=== PATIENT | male | born 1960 | race Caucasian/White ===

== ENCOUNTER 2017-01-17 10:34 | Emergency (ER) | payer BC ==
[~2017-01-17] VITALS: Ht 180.3 cm; Wt 108.0 kg
[~2017-01-17 10:34] MED LIST: ADDERALL30 MG PO; ADLT ASA LOW81 MG PO; AMOXICILLIN500 MG PO; AMPHETAMINE PO; ATENOLOL25 MG OR; ATENOLOL50 MG PO; ATORVASTATIN CA40 MG PO; AUGMENTIN500TAB PO; AUGMENTIN875TAB PO; BABY ASPIRIN81 MG OR; BACTRIM DS1 TAB PO; BACTROBAN2 % EX; CHANTIX CONTINUI1 MG OR; CHANTIX0.5 MG PO; CHANTIX1 MG OR; CHANTIX1 MG PO; CIALIS5 MG PO; CIPRODEX1 ML AD; CIPROFLOXACN500 MG PO; CLARITIN10 M1 PO; CORTISPORIN OTI10 ML AD; COUMADIN3 MG OR; DICLOXACILL500 MG PO; DILAUDID 2MG2 MG/TA1 PO; DILAUDID2 MG PO; DOXYCYC MONO100 M1 PO; DOXYCYCL HYC100 MG PO; FLEXERIL PO; FLEXERIL10 MG PO; FLONASE NASAL50 MCG; FUROSEMIDE20 MG PO; GARLIC OIL 15003 MG OR; HYDROCO/APAP1 TA9 PO; IRON325 M1; KEFLEX500 M1 PO; KENALOG-4040 MG/ML IA; LASIX20 MG PO; LIPITOR10 MG OR; LIPITOR20 MG PO; LIPITOR40 MG PO; LORTAB 5 OR; LORTAB 7.57.5 MG PO; LORTAB5 PO; LYRICA150 MG OR; LYRICA225 MG PO; LYRICA300 MG PO; LYRICA75 MG OR; LYRICA75 MG PO; MAGN SULFATE70 MG OR; MEDDOSEPAK PO; METFORMIN500 MG PO; METRONIDAZOL500 MG PO; MULTIVITAMI1 PO; NAPROSYN500 MG PO; NIACIN500 M2 PO; NIACIN500 MG OR; NIASPAN500 MG PO; NORCO1 TA2 PO; NORCO1 TAB PO; NUVIGIL150 MG PO; NUVIGIL250 MG OR; NUVIGIL250 MG PO; OMNICEF300 MG PO; PENICILLN VK500 MG OR; PERCOCET 5/325M1 TAB PO; PERCOCET1 TA2 OR; PLAVIX75 MG OR; PLAVIX75 MG PO; POTASSIMIN75 MG OR; POTASSIUM CITR540 MG PO; PREDNISONE10 MG PO; PROVIGIL200 MG PO; REQUIP XL2 MG PO; REQUIP0.5 MG OR; ROCEPHIN 1 GM1 GM IM; ROPINIROLE0.5 MG PO; SOLU-MEDROL125 MG IM; ULTRAM50 M1 PO; VIAGRA100 MG PO; WARFARIN1 MG PO; WARFARIN3 MG PO; XANAX0.5 MG OR; XANAX0.5 MG PO; ZESTRIL/PRI20 MG/TAB PO; ZESTRIL30 MG PO; ZITHROMAX250 MG PO; [UNRECOGNIZED DRUG - OTHER]
[2017-01-17 11:22] LABS: HEMATOCRIT 48.9 % (39.0-50.0); HEMOGLOBIN 16.4 g/dl (14.0-18.0); IMMATURE GRANULOCYTES 1.3 % (0.0-1.0); MEAN CELL VOLUME 93.9 fL CALC (80.0-100.0); MEAN CORPUSCULAR HGB 31.5 pG CALC (26.0-32.0); MEAN CORPUSCULAR HGB CONC 33.5 g/L CALC (32.0-36.0); NEUT# 4.96 thou/uL (1.82-7.42); RED BLOOD COUNT 5.21 mill/uL (4.70-6.10); RED CELL DISTRI WIDTH 15.7 % (11.5-15.5)
[2017-01-17 11:38] LABS: ALBUMIN 4.7 g/dL (3.2-5.0); ALKALINE PHOSPHATASE 108 u/l (38-126); AMYLASE 39 u/l (30-110); ANION GAP 16 (6-22 (CALC)); BILIRUBIN, TOTAL 1.3 mg/dL (0.0-1.4); BUN 12 mg/dL (9-20); BUN/CREATININE RATIO 14 (12-20 (CALC)); CALCIUM 9.5 mg/dL (8.4-10.2); CARBON DIOXIDE 23 mmol/l (22-30); CHLORIDE 106 mmol/l (95-108); CREATININE 0.9 mg/dL (0.7-1.3); GFR > 60 ML/MIN (>=60 (CALC)); GFR FOR AFR.AMER. > 60 ML/MIN (>=60 (CALC)); GLUCOSE 114 mg/dL (75-110); LIPASE 139 u/l (23-300); POTASSIUM 4.4 mmol/l (3.5-5.1); SGOT/AST 47 u/l (17-59); SGPT/ALT 83 u/l (21-72); SODIUM 140 mmol/l (137-146); TOTAL PROTEIN 7.5 g/dL (6.3-8.2)
[2017-01-17] MEDS ORDERED: LORTAB 10-325 M1 TAB PO (13:13)
[2017-01-17 13:30] VITALS: BP 169/106
== END 2017-01-17 13:32 | disposition home or self-care (01) | DRG 694 ==
LOC: ED 10:34
PROVIDERS: Emergency Medicine
DX: N20.1 Calculus of ureter (principal); E11.40 Type 2 diabetes mellitus with diabetic neuropathy, unspecified; E11.51 Type 2 diabetes mellitus with diabetic peripheral angiopathy without gangrene; I10 Essential (primary) hypertension; F41.9 Anxiety disorder, unspecified; G47.30 Sleep apnea, unspecified; F32.9 Major depressive disorder, single episode, unspecified; F17.210 Nicotine dependence, cigarettes, uncomplicated; Z95.828 Presence of other vascular implants and grafts
CPT/HCPCS: Q9967

== ENCOUNTER 2018-05-08 08:34 | Emergency (ER) | payer BC ==
[~2018-05-08] VITALS: Ht 180.3 cm; Wt 110.0 kg
[~2018-05-08 08:34] MED LIST changes: +LORTAB 10-325 M1 TAB PO
[2018-05-08 09:51] LABS: IMMATURE GRANULOCYTES 1.2 % (0.0-5.0); MEAN CELL VOLUME 96.9 fL CALC (80.0-100.0); MEAN CORPUSCULAR HGB 32.7 pG CALC (26.0-32.0); MEAN CORPUSCULAR HGB CONC 33.7 g/L CALC (32.0-36.0); NEUT# 7.19 thou/uL (1.82-7.42); RED BLOOD COUNT 4.25 mill/uL (4.70-6.10); RED CELL DISTRI WIDTH 15.7 % (11.5-15.5)
[2018-05-08 09:53] LABS: HEMATOCRIT 41.2 % (39.0-50.0); HEMOGLOBIN 13.9 g/dl (14.0-18.0)
[2018-05-08] MEDS ORDERED: LISINOPRIL20 MG PO (09:56)
[2018-05-08] MEDS ORDERED: LYRICA50 MG PO (09:58)
[2018-05-08] MEDS ORDERED: FUROSEMIDE20 MG PO (09:59)
[2018-05-08] MEDS ORDERED: WELLBUTRIN SR150 MG PO (10:00)
[2018-05-08] MEDS ORDERED: PLAVIX75 MG PO (10:00)
[2018-05-08 10:09] LABS: ANION GAP 16 (6-22 (CALC)); BUN 14 mg/dL (9-20); BUN/CREATININE RATIO 15 (12-20 (CALC)); CARBON DIOXIDE 24 mmol/l (22-30); CHLORIDE 105 mmol/l (95-108); CREATININE 0.9 mg/dL (0.7-1.3); GFR > 60 ML/MIN (>=60 (CALC)); GFR FOR AFR.AMER. > 60 ML/MIN (>=60 (CALC)); SODIUM 141 mmol/l (137-146)
[2018-05-08] MEDS ORDERED: CEPHALEXIN500 M1 PO (11:38)
[2018-05-08] MEDS ORDERED: MOTRIN400 MG PO (11:38)
[2018-05-08] MEDS ORDERED: BACTRIM DS1 TAB PO (11:38)
[2018-05-08] MEDS ORDERED: HYDROCO/APAP1 TA9 PO (11:49)
[2018-05-08 11:53] VITALS: BP 148/81
== END 2018-05-08 11:53 | disposition home or self-care (01) | DRG 603 ==
LOC: ED 08:34
PROVIDERS: Family Medicine
DX: L03.114 Cellulitis of left upper limb (principal); E11.9 Type 2 diabetes mellitus without complications; I10 Essential (primary) hypertension; E78.5 Hyperlipidemia, unspecified; F17.210 Nicotine dependence, cigarettes, uncomplicated; G47.30 Sleep apnea, unspecified; G47.419 Narcolepsy without cataplexy; Z95.828 Presence of other vascular implants and grafts
CPT/HCPCS: Q9967

== ENCOUNTER 2018-09-23 10:41 | Emergency (ER) | payer BC ==
[~2018-09-23] VITALS: Ht 180.3 cm; Wt 109.1 kg
[~2018-09-23 10:41] MED LIST changes: +ASPERCREME LIDOCA41 TP; +CEPHALEXIN500 M1 PO; +CYCLOBENZAPR5 MG PO; +LISINOPRIL20 MG PO; +LYRICA50 MG PO; +MOTRIN400 MG PO; +VOLTAREN1%GEL TOP; +WELLBUTRIN SR150 MG PO
[2018-09-23] MEDS ORDERED: HYDROCO/APAP1 TA9 PO (11:48)
[2018-09-23] MEDS ORDERED: BACTRIM DS1 TAB PO (11:48)
[2018-09-23] MEDS ORDERED: CEPHALEXIN500 M1 PO (11:48)
[2018-09-23 11:53] VITALS: BP 133/75
[2018-09-24] MEDS ORDERED: PLAVIX75 MG PO (10:43)
[2018-09-24] MEDS ORDERED: LOPID600 MG PO (10:48)
[2018-09-24] MEDS ORDERED: METFORMIN850 MG PO (10:48)
[2018-09-24] MEDS ORDERED: LYRICA100 MG PO (10:49)
[2018-09-24] MEDS ORDERED: LISINOPRIL20 MG PO (10:49)
[2018-09-24] MEDS ORDERED: SINGULAIR10 MG PO (11:32)
[2018-09-24] MEDS ORDERED: LIPITOR20 M1 PO (11:33)
[2018-09-24] MEDS ORDERED: BUPROPION HCL300 MG PO (11:34)
[2018-09-24] MEDS ORDERED: ASPIRIN81 MG PO (11:35)
[2018-09-24] MEDS ORDERED: NIACIN SR500 M1 PO (11:35)
[2018-09-24] MEDS ORDERED: NAPROXEN250 MG PO (11:36)
[2018-09-24] MEDS ORDERED: ADDERALL30 MG PO (11:37)
== END 2018-09-23 12:09 | disposition left against medical advice (07) | DRG 603 ==
LOC: ED 10:41
DX: L03.115 Cellulitis of right lower limb (principal); E11.621 Type 2 diabetes mellitus with foot ulcer; L97.519 Non-pressure chronic ulcer of other part of right foot with unspecified severity; I10 Essential (primary) hypertension; E78.5 Hyperlipidemia, unspecified; G47.419 Narcolepsy without cataplexy; T50.2X6A Underdosing of carbonic-anhydrase inhibitors, benzothiadiazides and other diuretics, initial encounter; F17.210 Nicotine dependence, cigarettes, uncomplicated; Z89.429 Acquired absence of other toe(s), unspecified side; Z95.828 Presence of other vascular implants and grafts; Z91.128 Patient's intentional underdosing of medication regimen for other reason; Z91.19 Patient's noncompliance with other medical treatment and regimen

== ENCOUNTER 2018-09-23 16:16 | Inpatient (IN) | payer BC ==
[~2018-09-23] VITALS: Ht 180.3 cm; Wt 100.0 kg
--- NOTE | 2018-09-23 16:41 | NUR ---
CHARGE NURSE INFORMED OF BP, INSTRUCTED TO PLACE PATIENT BACK TO WAITING ROOM. VS RECHECKED BP 108/51 HR 96. PATIENT INFORMED OF BUSY ED AND WAIT TIME. PATIENT BACK TO WAITING ROOM VIA WHEELCHAIR. ALERT AND ORIENTED X4.
--- NOTE | 2018-09-23 17:27 | NUR ---
PT TO ROOM # 15 VIA W/C
[2018-09-23 18:11] LABS: IMMATURE GRANULOCYTES 1.1 % (0.0-5.0); MEAN CORPUSCULAR HGB 30.1 pG CALC (26.0-32.0); MEAN CORPUSCULAR HGB CONC 33.4 g/L CALC (32.0-36.0); NEUT# 17.07 thou/uL (1.82-7.42); RED BLOOD COUNT 5.62 mill/uL (4.70-6.10); RED CELL DISTRI WIDTH 14.8 % (11.5-15.5)
--- NOTE | 2018-09-23 18:15 | NUR ---
PT NOW WITH IV ESTABLISHED, BLOOD DRAWN, CULTURES DRAWN, PROVIDED IVF AND ABX. PT AWARE OF POSSIBLE ADMISSION, AGREEABLE NOW. PT AMA'ed THIS AM.
[2018-09-23 18:43] LABS: HEMATOCRIT 50.6 % (39.0-50.0); HEMOGLOBIN 16.9 g/dl (14.0-18.0)
[2018-09-23 18:44] LABS: CREATININE 1.6 mg/dL (0.7-1.3); POTASSIUM 3.6 mmol/l (3.5-5.1)
[2018-09-23 19:43] VITALS: BP 141/79
--- NOTE | 2018-09-23 19:55 | NUR ---
PT TAKEN TO ROOM 268, REPORT TO KRYSTYNA.
--- NOTE | 2018-09-23 20:00 | NUR ---
pt arrived on floor via stretcher . pt a/o x3. able to voice needs. denies pain at current time. pt has 20g left forearm iv. patent and in good health. lung sounds clear, abdomen distented. pulses present. Right foot red and swollen. fourth toe amputation noted. pt stated d/t bone infection. pt has an open wound on bottom of right foot black in color. wound culture collected. foot warm to touch. pt states Bm was approx. 2 days ago. pt has unsteady gait d/t wound and swollen of foot. pt placedon fall precaution and seizure precation. bed rails wrapped with blankets. pt placed on droplet precaution for previous history of mrsa. poc discussed with pt. pt voiced understanding. son took medications home.pt has cpap from home set up in the room.pt declines flu vaccination. will continue to monitor. monitor.
[2018-09-24 00:29] VITALS: BP 131/74
[2018-09-24 03:50] VITALS: BP 140/79
[2018-09-24 05:07] LABS: HEMATOCRIT 49.7 % (39.0-50.0); HEMOGLOBIN 16.3 g/dl (14.0-18.0); MEAN CELL VOLUME 91.5 fL CALC (80.0-100.0); MEAN CORPUSCULAR HGB CONC 32.8 g/L CALC (32.0-36.0); RED BLOOD COUNT 5.43 mill/uL (4.70-6.10); RED CELL DISTRI WIDTH 14.8 % (11.5-15.5)
[2018-09-24 05:53] LABS: ANION GAP 12 (6-22 (CALC)); BUN 17 mg/dL (9-20); BUN/CREATININE RATIO 15 (12-20 (CALC)); CARBON DIOXIDE 26 mmol/l (22-30); CHLORIDE 104 mmol/l (95-108); CHOLESTEROL HDL RATIO 3.1 (<4.4 (CALC)); CREATININE 1.2 mg/dL (0.7-1.3); GFR > 60 ML/MIN (>=60 (CALC)); GFR FOR AFR.AMER. > 60 ML/MIN (>=60 (CALC)); HDL CHOLESTEROL 36 mg/dL (>=40); POTASSIUM 3.7 mmol/l (3.5-5.1); SODIUM 139 mmol/l (137-146); TOTAL TRIGLYCERIDES 108 mg/dl (30-149); VLDL CHOLESTROL 22 mg/dl (4-45 (CALC))
[2018-09-24 05:58] LABS: CALCULATED LDLCHOLESTEROL 52 mg/dL (62-129 (CALC))
[2018-09-24 05:59] LABS: TOTAL CHOLESTEROL 110 mg/dl (0-199)
--- NOTE | 2018-09-24 08:12 | NUR ---
SHIFT REPORT, PT AWAKE ALERT AND ORIENTED RESTING IN BED, NO C/O DISCOMFORT AT THIS TIME, ALL NEEDS ADDRESSED, CALL COCHRAN IN REACH.
[2018-09-24 09:08] VITALS: BP 120/70
[2018-09-24] MEDS ORDERED: PLAVIX75 MG PO (10:43)
[2018-09-24] MEDS ORDERED: METFORMIN850 MG PO (10:48)
[2018-09-24] MEDS ORDERED: LOPID600 MG PO (10:48)
[2018-09-24] MEDS ORDERED: LYRICA100 MG PO (10:49)
[2018-09-24] MEDS ORDERED: LISINOPRIL20 MG PO (10:49)
[2018-09-24] MEDS ORDERED: SINGULAIR10 MG PO (11:32)
[2018-09-24] MEDS ORDERED: LIPITOR20 M1 PO (11:33)
[2018-09-24] MEDS ORDERED: BUPROPION HCL300 MG PO (11:34)
[2018-09-24] MEDS ORDERED: ASPIRIN81 MG PO (11:35)
[2018-09-24] MEDS ORDERED: NIACIN SR500 M1 PO (11:35)
[2018-09-24] MEDS ORDERED: NAPROXEN250 MG PO (11:36)
[2018-09-24] MEDS ORDERED: ADDERALL30 MG PO (11:37)
--- NOTE | 2018-09-24 12:29 | NUR ---
RESTING IN BED AT THIS TIME, ATE MEAL, DR OREILLY ROUNDED AND WROTE ORDERS, PHARMACY CONTACTED TO UPDATE MED[facility]. PT REPORTED HAS NOT TAKEN ANY HOME MEDICATIONS SINCE LAST TUESDAY AND THAT HE DISCARDED ALL HIS MEDICATIONS THEY WERE TOO MANY.
--- NOTE | 2018-09-24 13:14 | NUR ---
S: LILO BURRIS is a 58 M who presents with SKIN INFECTION. He has a history of. All medications in patient's chart were reviewed. O: VS: BP 120/70, P92, RR20,T99.9 W 95kg, HT 71IN, Scr=1.2,CrCl= 77ml/min A: Blood culture is pending which is sensitive to <>. Urine culture is pending which is sensitive to <>. P: Patient is on ZOSYN. Vancomycin ordered for pharmacy to dose. Start Vancomycin 1250MG IV Q12H. Vancomycin trough is drawn before the 4th dose on 09/26/18 0030 . Vancomycin goal trough is between <15-20 mcg/ml>. RULE OUT OSTEO Pharmacy will follow and or advise on antibiotics use as needed. GRAYSON GARRISON-PHARMD
--- NOTE | 2018-09-24 15:00 | NUR ---
DR OKSANA VYAS, EVALUATED RIGHT ROOT, MRI ORDERED. PT STATED HE WAS NOT AWARE OF ULCER ON TOE AND HE JUST NOTICED REDNESS TO LEG 2 DAYS AGO.
[2018-09-24 15:51] VITALS: BP 159/97
[2018-09-24 19:14] VITALS: BP 149/70
[2018-09-25] VITALS (10 sets, daily range): BP systolic 107–154; BP diastolic 60–85
--- NOTE | 2018-09-25 00:23 | NUR ---
MADHAVI OREILLY NOTIFIED OF HYPOTENSION. ORDERS RECIEVED TO GIVE PT ONE LITER OF FLUID.
[2018-09-25 05:14] LABS: HEMATOCRIT 47.9 % (39.0-50.0); HEMOGLOBIN 15.7 g/dl (14.0-18.0); MEAN CELL VOLUME 90.5 fL CALC (80.0-100.0); MEAN CORPUSCULAR HGB 29.7 pG CALC (26.0-32.0); MEAN CORPUSCULAR HGB CONC 32.8 g/L CALC (32.0-36.0); RED BLOOD COUNT 5.29 mill/uL (4.70-6.10); RED CELL DISTRI WIDTH 14.5 % (11.5-15.5)
--- NOTE | 2018-09-25 05:16 | NUR ---
PT BP AND TEMP HAS IMPROVED. LITER OF FLUID EFFECTIVE. WILL CONTINUE TO MONITOR.
[2018-09-25 05:40] LABS: ANION GAP 12 (6-22 (CALC)); BUN 14 mg/dL (9-20); BUN/CREATININE RATIO 14 (12-20 (CALC)); CARBON DIOXIDE 23 mmol/l (22-30); CHLORIDE 107 mmol/l (95-108); GFR > 60 ML/MIN (>=60 (CALC)); GFR FOR AFR.AMER. > 60 ML/MIN (>=60 (CALC)); POTASSIUM 4.2 mmol/l (3.5-5.1); SODIUM 138 mmol/l (137-146)
--- NOTE | 2018-09-25 07:00 | NUR ---
RECEIVED REPORT FROM NURSE Rhonda LUNA, PATIENT RESTING IN BED, EYES CLOSED NO DISCOMFORTS NOTED AT THIS TIME. WITH iV OF NACL 1 L X 100CC/HR, INFUSING WELL ON LEFT FOREARM
--- NOTE | 2018-09-25 12:00 | NUR ---
SEEN BY DENILSON TUCKER AROUND 10;05, ORDERS TO REPEAT HGB/HCT, PATIENT SITTING CURRENTLY SITTING ON BED, HAVING LUNCH.
--- NOTE | 2018-09-25 12:30 | NUR ---
PATIENT COMPLAINED OF PAIN IV SITE, SITE CHECKED BY TWO NURSES, IV SITE SOME REDNESS, WAS INFILTRATED. REMOVED IV LINE AT THIS TIME. TWO NURSES TRIED TO PUT IV LINE UNSUCCESSFUL. DR. OREILLY AT BEDSIDE AND DISCUSSED THE FINDINGS ON MRI OF THE RT FOOT, AND DISCUSSED THE PLAN OF CARE.
--- NOTE | 2018-09-25 12:48 | NUR ---
CALLED STATED THAT HE WILL CALL OR TO SETUP A TIME FOR PT TO GO TO SURGERY.
--- NOTE | 2018-09-25 14:00 | NUR ---
NURSE ORQUIDEA AND SUE TRIED TO INSERT IV LINE, UNSUCCESSFUL. CELIA FROM OR MADE AWARE THAT PREVIOUS ATTEMPTS UNSUCCESSFULL AND SAID THAT WILL PUT LINE ONCE HE'S DONE WITH HIS CASE.
--- NOTE | 2018-09-25 16:35 | NUR ---
CALLED CELIA FROM OR AND REMINDED HIM OF IV THAT STILL NEEDS TO BE INSERTED, STILL BUSY WITH CASE AT THIS TIME. PATIENT CURRENTLY RESTING IN BED, NO DISCOMFORTS NOTED AT THIS TIME, REINFORCED ON NPO.CALL LIGHT WITHIN REACH
--- NOTE | 2018-09-25 17:34 | NUR ---
1725 REPORT GIVEN TO NURSE NICOLE FROM OR, MADE AWARE THAT PATIENT HAS NO IV LINE YET, PAPER WORKS AND CHART GIVEN WELL. MADE AWARE ALSO THAT IV ZOSYN WAS NOT GIVEN AT 1200 AND SO IS IV VANCOMYCIN.ZOSYN AND VANCOMYCIN IV BAGS GIVEN TO NURSE COREY AND SAID WILL GIVE IT AT OR. PATIENT TAKEN TO OR VIA BED.
--- NOTE | 2018-09-25 19:30 | NUR ---
REPORT RECIEVED FROM [facility]. PT IN OPERATING ROOM. POC DISCUSSED. WAITING FOR PTS ARRIVAL.
--- NOTE | 2018-09-25 20:28 | NUR ---
PT ARRIVED FROM OPERATING ROOM VIA [facility].
[2018-09-26 00:12] VITALS: BP 119/64
--- NOTE | 2018-09-26 04:00 | NUR ---
equipment operator/laborer in room to draw blood. pt a/o. denies pain. no distress noted. pain managed with loratab. pt educated on importance of using o2. drg to foot clean dry and intact. will continue to monitor.
[2018-09-26 04:18] VITALS: BP 128/73
[2018-09-26 05:10] LABS: HEMATOCRIT 43.1 % (39.0-50.0); HEMOGLOBIN 14.1 g/dl (14.0-18.0); MEAN CELL VOLUME 91.9 fL CALC (80.0-100.0); MEAN CORPUSCULAR HGB 30.1 pG CALC (26.0-32.0); MEAN CORPUSCULAR HGB CONC 32.7 g/L CALC (32.0-36.0); RED BLOOD COUNT 4.69 mill/uL (4.70-6.10); RED CELL DISTRI WIDTH 14.6 % (11.5-15.5)
[2018-09-26 05:35] LABS: ANION GAP 10 (6-22 (CALC)); BUN 13 mg/dL (9-20); BUN/CREATININE RATIO 13 (12-20 (CALC)); CARBON DIOXIDE 21 mmol/l (22-30); CHLORIDE 110 mmol/l (95-108); CREATININE 0.9 mg/dL (0.7-1.3); GFR > 60 ML/MIN (>=60 (CALC)); GFR FOR AFR.AMER. > 60 ML/MIN (>=60 (CALC)); POTASSIUM 4.1 mmol/l (3.5-5.1); SODIUM 137 mmol/l (137-146)
--- NOTE | 2018-09-26 07:00 | NUR ---
RECEIVED REPORT FROM NURSE Rhonda LUNA, PATIENT WAS RESTING IN BED, EYES CLOSED NO DISCOMFORT NOTED AT THIS TIME, WITH EVEN UNLABORED BREATHING, WITH IV MIDLINE ON SADAF INFUSING WELL AT 100CC/HR.CALL LIGHT AT REACH
[2018-09-26 07:15] VITALS: BP 137/80
--- NOTE | 2018-09-26 12:00 | NUR ---
AROUND 11AM PATIENT WAS SEEN ON ROUNDS BY DR. OREILLY, ORDERS TO INCREASED DOSAGE OF PAIN MEDICATION, PATIENT WAS CURRENTLY SITTING ON WHEELCHAIR AND REINFORCED OF NWB ON OPERATIVE FOOT. CALL LIGHT AT REACH
--- NOTE | 2018-09-26 13:20 | NUR ---
S: LILO BURRIS is a 58 M who presents with soft tissue infection, osteomyelitis has been confirmed. O: VS: BP 128/73, P 69, RR 20,T 96.7F W 95.5 kg, HT 71 IN, Scr= 0.9, CrCl ~92 ml/min A: Blood culture is pending Wound culture from 09/24 shows Strep agalcatiae (B) Wound culture from 09/25 pending P: Patient is on ZOSYN. Vancomycin ordered for pharmacy to dose. Increase dose to Vancomycin 1500MG IV Q12H @ 0200,1400. Next vanco trough will be drawn on 09/28/18 @ 0130, 30 minutes prior to 0200 dose. Vancomycin goal trough is between 15-20 mcg/ml. Pharmacy will follow and or advise on antibiotics use as needed. Thank you for the consult, Varsha Aguilera, AlmaD
[2018-09-26 15:55] VITALS: BP 165/82
--- NOTE | 2018-09-26 16:00 | NUR ---
AT AROUND 1559 PATIENT C/O PAIN ON OPERATIVE FOOT, DUE HYDROCODONE/ACETAMINOPHEN GIVEN, TEMP WAS 101.3F. WASH CLOTH OFFERED.
--- NOTE | 2018-09-26 18:55 | NUR ---
PATIENTS TEMP RECHECKED AT 1716 WAS 102.5 F, DUE PRN TYLENOL GIVEN, RECHECKED AGAIN AT 1800, WENT DOWN TO 101.3.WILL CONTINUE TO MONITOR
--- NOTE | 2018-09-26 19:00 | NUR ---
RECIEVED REPORT FROM DAY NURSE. PT WHEELING HIMSELF AROUND THE HALLS IN WITH IV POLE. NO NEEDS AT THIS TIME. CALL COCHRAN IN REACH. WILL CONTINUE TO MONITOR. RED BLOOD NOTED TO BOTTOM OF SHABBIR BANDAGE ON RIGHT FOOT REINFORCED WITH ABD AND MORE SHABBIR. PT FLOPS FOOT AROUND ON BED AND ON THE FLOOR. REINFORCED PERCATIONS ON NON WEIGHT BEARING AND ELEVATING FOOT. ASSESMENT COMPLETED AT THIS TIME(SEE INTERVENTIONS) LUNG SOUNDS DIMINISHED THROUGHOUT, BS ACTIVE, HEART RATE NORMAL, TRACE EDEMA NOTED TO RIGHT LEG.
--- NOTE | 2018-09-26 20:42 | NUR ---
PT LAYING IN BED WATCHING TV AT THIS TIME. NO S/S OF DISTRESS NOTED.RED BLOOD NOTED TO BOTTOM OF SHABBIR BANDAGE ON RIGHT FOOT REINFORCED WITH ABD AND MORE SHABBIR. PT FLOPS FOOT AROUND ON BED AND ON THE FLOOR. REINFORCED PERCATIONS ON NON WEIGHT BEARING AND ELEVATING FOOT. ASSESMENT COMPLETED AT THIS TIME(SEE INTERVENTIONS) LUNG SOUNDS DIMINISHED THROUGHOUT, BS ACTIVE, HEART RATE NORMAL, TRACE EDEMA NOTED TO RIGHT LEG. NO OTHER NEEDS AT THIS TIME. CALL COCHRAN IN REACH. WILL CONTINUE TO MONITOR.
[2018-09-27] VITALS (7 sets, daily range): BP systolic 114–166; BP diastolic 62–79
--- NOTE | 2018-09-27 | NUR ---
PT RESTING QUIETLY IN BED. NO S/S OF DISTRESS NOTED. CALL COCHRAN IN REACH. WILL CONTINUE TO MONITOR.
--- NOTE | 2018-09-27 04:00 | NUR ---
PT RESTING QUIETLY IN BED. NO S/S OF DISTRESS NOTED. CALL COCHRAN IN REACH. WILL CONTINUE TO MONITOR.
[2018-09-27 05:21] LABS: HEMATOCRIT 42.5 % (39.0-50.0); HEMOGLOBIN 13.7 g/dl (14.0-18.0); MEAN CELL VOLUME 91.2 fL CALC (80.0-100.0); MEAN CORPUSCULAR HGB 29.4 pG CALC (26.0-32.0); MEAN CORPUSCULAR HGB CONC 32.2 g/L CALC (32.0-36.0); RED BLOOD COUNT 4.66 mill/uL (4.70-6.10); RED CELL DISTRI WIDTH 14.6 % (11.5-15.5)
[2018-09-27 05:31] LABS: ANION GAP 11 (6-22 (CALC)); BUN 11 mg/dL (9-20); BUN/CREATININE RATIO 11 (12-20 (CALC)); CARBON DIOXIDE 23 mmol/l (22-30); CHLORIDE 106 mmol/l (95-108); CREATININE 0.9 mg/dL (0.7-1.3); GFR > 60 ML/MIN (>=60 (CALC)); GFR FOR AFR.AMER. > 60 ML/MIN (>=60 (CALC)); POTASSIUM 3.8 mmol/l (3.5-5.1); SODIUM 136 mmol/l (137-146)
--- NOTE | 2018-09-27 05:50 | NUR ---
MID LINE FOUND PARTIALLY DISLODGED. MIDLINE PULLED AND NEW IV RESTARTED. PT TOLERATED WELL. CALL COCHRAN IN REACH. WILL CONTINUE TO MONITOR.
--- NOTE | 2018-09-27 07:00 | NUR ---
RECEIVED REPORT FROM NURSE PEARSON, PATIENT WAS CURRENTLY IN BED, SLEEPING, EVEN UNLABORED BREATHING, WITH ONGOING IVF OF NORMAL SALINE @100CC/HR ON RT WRIST,CALL LIGHT AT REACH
--- NOTE | 2018-09-27 11:46 | NUR ---
DR GANDHI CONTACTED ABOUT DRESSING CHANGE TO RIGHT SURGICAL FOOT, ADVISED TO LEAVE ALONE HE WILL BE HERE LATED TO CHANGE DRESSING, IF DRAINING THROUGH SHABBIR BANDAGE, APPLY ABD AND SECURE WITH ANOTHER SHABBIR WRAP.
--- NOTE | 2018-09-27 12:15 | NUR ---
SEEN ON ROUNDS BY DR. HERRING, REVIEW THE PLAN OF CARE WITH THE PATIENT, ORDERED TO CONTINUE WITH PRESENT TREATMENT, PATIENT ALERT AND ORIENTED BUT NON COMPLIANT WITH DIET, EDUCATED WITH APPROPRIATE DIABETIC DIET. CURRENTLY RESTING IN BED, CALL LIGHT AT REACH.
--- NOTE | 2018-09-27 13:17 | NUR ---
DR HERRING ROUNDED, ORDERED TO DC IVF, SURGEON TO FOLLOW WITH WOUND CARE.
--- NOTE | 2018-09-27 17:30 | NUR ---
SEEN ON ROUNDS BY DR. GANDHI, DRESSINGS CHANGED DONE BY SURGEON. NO NEW ORDERS MADE AT THIS TIME. CALL LIGHT WITHIN REACH.
--- NOTE | 2018-09-27 19:10 | NUR ---
BEDSIDE REPORT RECEIVED FROM SOPHIE TELLEZ. PT RESTING IN BED SEMI FOWLERS; ALERT AND ORIENTED. C/O MILD PAIN TO RIGHT FOOT; ELEVATED ON PILLOWS AND DRESSING CDI. RESPIRATIONS EVEN AND UNLABORED ON ROOM AIR. PLAN OF CARE REVIEWED. PT ENCOURAGED TO VERBALIZE CONCERNS. STATES UNDERSTANDING. SAFETY MEASURES IN PLACE. CALL LIGHT WITHIN REACH.
--- NOTE | 2018-09-27 22:41 | NUR ---
MOTRIN GIVEN WITH GOOD EFFECT FOR FEVER; TEMPERATURE 96.9 AT THIS TIME. LORTAB AND SONATA GIVEN PER PT REQUEST AT HS. ENCOURAGED RLE ELEVATION AND EDUCATED ON ACTIVITY LEVEL; PT STATES UNDERSTANDING. CPAP APPLIED.
--- NOTE | 2018-09-28 | NUR ---
PT FOUND AMBULATING FROM BATHROOM TO BED; LIMPING AND C/O PAIN AND BEING FREEZING COLD. TEMPERATURE BROKE AND TEMP CURRENTLY 96.9. PT REMINDED THAT HE IS NWB ON HIS RLE. PT STATES, "I JUST WOKE UP AND HAD TO USE THE BATHROOM. I DIDN'T EVEN THINK ABOUT IT." PT STATES THAT HE WENT TO THE BATHROOM TO VOID. I REMINDED PT TO USE BEDSIDE URINAL TO AVOID AMBULATING AND HE REPEATS, "I JUST DIDN'T THINK ABOUT IT." DRESSING REMAINS CDI WITH SHABBIR WRAP. RLE IS RED WITH TRACE EDEMA. ENCOURAGED ELEVATION ON PILLOWS. STATES UNDERSTANDING.
[2018-09-28 02:05] VITALS: BP 169/85
--- NOTE | 2018-09-28 02:14 | NUR ---
PT SWEATY AND FEELS COLD. TEMPERATURE LOW AT 94.9. WHEN AWAKNED PT IS CONFUSED TO TIME, PLACE, AND SITUATION. AFTER A FEW MINUTES AND BEING AWAKE PT IS NOW ORIENTED. BLOOD SUGAR IS 118. BP 169/85. ROOM WARMED AND PT LINENS CHANGED. VANCOMYCIN ADMINISTERED AFTER VANCO TROUGH OBTAINED AND WNL. IV SITE APPEARS HEALTHY AND FLUSHES. PT REMAINS NWB TO RLE, BUT IS NON COMPLIANT. PT REMOVED CPAP AND NOW ON ROOM AIR. SAFETY PRECAUTIONS REINFORCED. CALL LIGHT WITHIN REACH.
[2018-09-28 04:16] VITALS: BP 163/82
--- NOTE | 2018-09-28 04:53 | NUR ---
PT RESTING SUPINE IN BED WITH CPAP ON; RESPIRATIONS SHALLOW WITH PAUSES; OXYGEN SATURATION 95%. C/O MILD PAIN TO RLE; LORTAB GIVEN EARLIER. NEW IV SITE PLACED; PREVIOUS SITE WITH PAIN AND REDNESS. DRESSING TO RIGHT FOOT IS CDI AND FOOT ELEVATED ON PILLOWS.
[2018-09-28 05:42] LABS: HEMATOCRIT 43.3 % (39.0-50.0); HEMOGLOBIN 14.3 g/dl (14.0-18.0); IMMATURE GRANULOCYTES 0.9 % (0.0-5.0); MEAN CELL VOLUME 90.4 fL CALC (80.0-100.0); MEAN CORPUSCULAR HGB 29.9 pG CALC (26.0-32.0); PLATELET COUNT 133 thou/uL (130-400); RED BLOOD COUNT 4.79 mill/uL (4.70-6.10); RED CELL DISTRI WIDTH 14.4 % (11.5-15.5)
[2018-09-28 05:50] LABS: ALKALINE PHOSPHATASE 92 u/l (38-126); ANION GAP 13 (6-22 (CALC)); BUN 12 mg/dL (9-20); BUN/CREATININE RATIO 14 (12-20 (CALC)); CARBON DIOXIDE 22 mmol/l (22-30); CHLORIDE 108 mmol/l (95-108); CREATININE 0.8 mg/dL (0.7-1.3); GFR > 60 ML/MIN (>=60 (CALC)); GFR FOR AFR.AMER. > 60 ML/MIN (>=60 (CALC)); SGOT/AST 22 u/l (17-59); SODIUM 140 mmol/l (137-146); TOTAL PROTEIN 5.2 g/dL (6.3-8.2)
[2018-09-28 05:51] LABS: ALBUMIN 2.9 g/dL (3.2-5.0)
[2018-09-28 06:16] LABS: MANUAL DIFFERENTIAL YES
[2018-09-28 08:20] VITALS: BP 156/80
--- NOTE | 2018-09-28 08:29 | NUR ---
REPORT RECEIVED FROM SOPHIE SANON. PT SITTING UPRIGHT IN BED. REPORTS MODERATE PAIN TO RIGHT FOOT. LORTAB PO ADMINISTERED. WILL MONITOR FOR EFFECTIVENESS. PLAN OF CARE REVIEWED. NWB STATUS TO R FOOT DISCUSSED. PT STATES UNDERSTANDING. CALL LIGHT REVIEWED AND IN REACH.
[2018-09-28 11:12] VITALS: BP 158/84
--- NOTE | 2018-09-28 12:07 | NUR ---
DR. HERRING IN TO SEE PT. PLAN OF CARE UPDATED AT THIS TIME.
[2018-09-28 15:05] VITALS: BP 179/91
--- NOTE | 2018-09-28 16:30 | NUR ---
PT SITTING UPRIGHT IN BED. RIGHT FOOT ELEVATED ON PILLOWS. REPORTS RELIEF OF RECENT PAIN TO RIGHT FOOT.
--- NOTE | 2018-09-28 19:20 | NUR ---
BEDSIDE REPORT RECEIVED FROM SOPHIE STOVER. PT RESTING IN BED SEMI FOWLERS TALKING ON CELL PHONE; ALERT AND ORIENTED. PHONE CONVERSATION SEEMS TO HAVE PT AGITATED AND BLOOD PRESSURE IS ELEVATED. PT ENCOURAGED TO RELAX AND WILL RECHECK BP. C/O MILD PAIN TO RLE AND DRESSING IS CDI. RESPIRATIONS EVEN AND UNLABORED ON ROOM AIR. PLAN OF CARE REVIEWED. PT ENCOURAGED TO VERABLIZE CONCERNS. STATES UNDERSTANDING. SAFETY MEASURES IN PLACE. CALL LIGHT WITHIN REACH.
[2018-09-28 19:51] VITALS: BP 151/70
[2018-09-29] VITALS (9 sets, daily range): BP systolic 146–179; BP diastolic 72–113
--- NOTE | 2018-09-29 00:03 | NUR ---
PT ASLEEP AT THIS TIME WITH CPAP ON; RESPIRATIONS UNEVEN AND UNLABORED. IV SITE APPEARS HEALTHY AND FLUSHES. PT VOIDING CLEAR YELLOW URINE IN URINALS IN ADEQUATE AMOUNTS. AWARE THAT HE WILL BE NPO AFTER BREAKFAST FOR SCHEDULED SURGERY ON RIGHT FOOT; NO QUESTIONS CONCERNS PROCEDURE. REMAINS NWB ON RLE. LORTAB AND SONATA GIVEN AT HS WITH SCHEDULED LYRICA. SAFETY MEASURES IN PLACE. CALL LIGHT WITHIN REACH.
--- NOTE | 2018-09-29 00:10 | NUR ---
PT AWAKENED AND NOW SELF PROPELLING IN WHEELCHAIR DOWN THE HALLWAYS; STATES THAT HE WAS HAVING A HARD TIME SLEEPING. PLEASANT AND TALKING WITH NURSING STAFF.
--- NOTE | 2018-09-29 04:12 | NUR ---
NO ACUTE CHANGES IN CONDITION THROUGHOUT THE NIGHT. PT REPOSITIONED BACK INTO BED. LORTAB GIVEN FOR 6/10 RLE PAIN.
[2018-09-29 05:31] LABS: HEMATOCRIT 43.7 % (39.0-50.0); HEMOGLOBIN 14.6 g/dl (14.0-18.0); IMMATURE GRANULOCYTES 0.8 % (0.0-5.0); MEAN CELL VOLUME 89.4 fL CALC (80.0-100.0); MEAN CORPUSCULAR HGB 29.9 pG CALC (26.0-32.0); MEAN CORPUSCULAR HGB CONC 33.4 g/L CALC (32.0-36.0); RED BLOOD COUNT 4.89 mill/uL (4.70-6.10); RED CELL DISTRI WIDTH 14.2 % (11.5-15.5)
[2018-09-29 05:51] LABS: PROTHROMBIN TIME 10.7 SECONDS (9.0-12.5)
[2018-09-29 05:55] LABS: ALBUMIN 3.2 g/dL (3.2-5.0); ALKALINE PHOSPHATASE 100 u/l (38-126); ANION GAP 16 (6-22 (CALC)); BILIRUBIN, TOTAL 0.9 mg/dL (0.0-1.4); BUN 11 mg/dL (9-20); BUN/CREATININE RATIO 13 (12-20 (CALC)); CARBON DIOXIDE 21 mmol/l (22-30); CHLORIDE 105 mmol/l (95-108); CREATININE 0.9 mg/dL (0.7-1.3); GFR > 60 ML/MIN (>=60 (CALC)); GFR FOR AFR.AMER. > 60 ML/MIN (>=60 (CALC)); MAGNESIUM 1.9 mg/dL (1.6-2.3); POTASSIUM 4.2 mmol/l (3.5-5.1); SGOT/AST 29 u/l (17-59); SODIUM 138 mmol/l (137-146); TOTAL PROTEIN 5.8 g/dL (6.3-8.2)
[2018-09-29 06:10] LABS: MANUAL DIFFERENTIAL YES; PLATELET COUNT 199 thou/uL (130-400)
--- NOTE | 2018-09-29 07:38 | NUR ---
REPORT RECEIVED FROM FAB; PT A/O X3; SITTING UP IN BED WATCHING TV; VITALS OBTAINED; C/O PAIN 6/10 R. FOOT; LORTAB GIVEN FOR PAIN; DRESSING CDI TO RLE; AM MEDS ADMINSTER; HELD PLAVIX; RESP EVEN AND UNLABORED; IV TO RW PATENT, FLUSHED W/O DIFFICULTY; NO S/S OF DISTRESS NOTED; PT EDUCATED OF SURGERY THIS AFTERNOON; NPO AFTER BREAKFAST; POC DISCUSSED; CALL COCHRAN AND URINAL IN REACH.
--- NOTE | 2018-09-29 08:53 | NUR ---
DR ALCARAZ CALLED TO CONFIRM SURGERY AT 5PM TODAY;
--- NOTE | 2018-09-29 09:51 | NUR ---
PT SITTING W/C IN THE HALLS TALKING TO FAMILY MEMBERS; NO S/S OF DISTRESS NOTED; PT NPO AND AWARE OF IT.
--- NOTE | 2018-09-29 11:55 | NUR ---
PT SITTING UP IN BED WATCHING TV; PT EDUCATED TO REMAIN NPO FOR SURGERY; PT STATES "I WILL ONLY WET MY THROAT: RESP EVEN AND UNLABORED; C/O OF NO PAIN; URINAL AND W/C AT BEDSIDE.
--- NOTE | 2018-09-29 15:18 | NUR ---
PT GOING TO OR FOR PROCEDURE IN BED, ACCOMPANIED BY TWO ER STAFF IN STABLE CONDITION; FRENCH SENT WITH NURSE. PT STATED HE TOOK SIPS OF WATER 100CC TOTAL SINCE BREAKFAST. OR STAFF IS AWARE. PT'S BED NOT WORKING PROPERLY, SWITCH OUT BED.
--- NOTE | 2018-09-29 18:04 | NUR ---
PT ARRIVE FROM OR VIA BED, ACCOMPANIED BY TWO OR NURSES; VITALS TEMP 98.5, HR 69, RESP 18, B/P 166/98; DRESSING TO LLE CDI, ELEVATED ON PILLOWS; IVF @100CC/HR; SITE APPEARS HEALTHY; PT C/O OF PAIN 10/10 RLE; MEDICATED WITH 2 PERCOCET; SCD ON L FOOT; URINAL PLACE BETWEEN LEGS PER PT REQUEST; CALL COCHRAN IN REACH.
--- NOTE | 2018-09-29 23:18 | NUR ---
PT C/O THROBBING PAIN 04/04 RIGHT FOOT. MEDICATED WITH PRN PAIN MEDICATION AND SONATA UPON REQUEST. CALL LIGHT WITHIN REACH. WILL CONTINUE TO MONITOR.
--- NOTE | 2018-09-30 03:23 | NUR ---
PT C/O PAIN IN RIGHT FOOT 04/04. REPOSITIONED FOOT AND ELEVATED ON PILLOW AT THIS TIME. MEDICATED WITH PRN LORTAB. CALL LIGHT WITHIN REACH. WILL CONTINUE TO MONITOR.
[2018-09-30 04:44] VITALS: BP 139/85
--- NOTE | 2018-09-30 07:10 | NUR ---
REPORT RECEIVED FROM SHELLY WEEMS; PT SITTING UP IN BED WATCHING TV, STATES "IM DUE FOR A PAIN PILL" RESP EVEN AND UNLABORED; NO S/S OF DISTRESS NOTED.
[2018-09-30 07:50] VITALS: BP 169/78
--- NOTE | 2018-09-30 07:58 | NUR ---
ASSESSMENT COMPLETED; PT A/O X4; VITALS STABLE; DRESSING TO R FOOT CDI; PT EDUCATED NWB TO R. FOOT; C/O OF PAIN 6/10 MEDICATED WITH LORTAB; PT ABLE TO READJUST SELF IN BED; C/O OF BREAKFAST; IV SITE FLUSHED WITHOUT DIFFICULTY, SITE APPEARS HEALTHY; NO S/S OF DISTRESS NOTED; CALL LIGHT, URINAL, W/C IN REACH.
--- NOTE | 2018-09-30 09:54 | NUR ---
LAW FIRM CONSULTANT IN ROOM TO ASSIST PT WITH A BATH
--- NOTE | 2018-09-30 09:55 | NUR ---
DR FREIRE AT BEDSIDE TALKING TO PT; DR FREIRE TEL # [phone]
[2018-09-30 11:00] VITALS: BP 149/68
--- NOTE | 2018-09-30 11:53 | NUR ---
PT SITTING UP IN BED EATING LUNCH; DR ADVANCE DIET; DRESSING TO R. FOOT CDI;
[2018-09-30 14:55] VITALS: BP 152/79
--- NOTE | 2018-09-30 15:52 | NUR ---
PT'S TEMP 101 MEDICATED WITH MOTRIN; SAFETY PRECAUTION REINFORCE NWB ON R FOOT; IV SITE REMAIN PATENT. EMPTIED 400 CLEAR RUKHSANA URINE FROM URINAL.
--- NOTE | 2018-09-30 19:15 | NUR ---
REPORT FROM SARAH BRAVO. PT RESTING IN BED. PT C/O PAIN 7/10 RIGHT FOOT, REPOSITIONED ON PILLOW AT THIS TIME ENCOURAGED KEEPING ELEVATED. WILL MEDICATED AT NEXT AVAILABLE DUE TIME. DRESSING CDI. DISCUSSED POC. IV SITE APPEARS HEALTHY. CALL LIGHT WITHIN REACH. WILL CONTINUE TO MONITOR.
[2018-09-30 19:49] VITALS: BP 129/78
--- NOTE | 2018-09-30 22:47 | NUR ---
RT IN ROOM ASSISTING PT WITH CPAP MACHINE.
--- NOTE | 2018-10-01 02:27 | NUR ---
PT RESTING IN BED WITH EYES CLOSED. NO S/S OF PAIN OR DISCOMFORT. RIGHT FOOT ELEVATED ON PILLOWS. CALL LIGHT WITHIN REACH. WILL CONTINUE TO MONITOR.
[2018-10-01 04:50] VITALS: BP 120/72
--- NOTE | 2018-10-01 05:17 | NUR ---
PT NONCOMPLIANT WITH CALL LIGHT. PT TRANSFERED SELF FROM BED TO WHEELCHAIR AND WHEELED DOWN CROSS TO NURSES STATION FOR SNACK. ENCOURAGED PT TO CALL FOR NEEDS AND ASSISTANCE. EDUCATED PT ON NWB STATUS. PT STATES HE IS AWARE OF NWB STATUS AND THAT HE DOES NOT BEAR WEIGHT ON RLE. ASSISTED PT BACK TO BED WITH SNACK AT THIS TIME. CALL LIGHT WITHIN REACH. WILL CONTINUE TO MONITOR.
[2018-10-01 09:10] VITALS: BP 153/78
--- NOTE | 2018-10-01 09:10 | NUR ---
REPORT RECEIVED FROM SHELLY WEEMS; PT SITTING UP IN BED WATCHING TV; RESP EVEN AND UNLABORED; VITALS STABLE, NO TEMP; AM MEDS ADMINISTERED; C/O 7/10 PAIN SCALE, MEDICATED WITH LORATAB; DRESSING TO R FOOT CDI; SAFETY PRECAUTION REIFORCE; IV FLUSHED WITHOUT DIFFICULTY; SITE APPEARS HEALTHY; URINAL AND CALL COCHRAN IN REACH.
--- NOTE | 2018-10-01 11:06 | NUR ---
PT SITTING UP IN BED USING HIS PHONE AND WATCHING TV; MEDICATED PER EMAR; PT VOICE NO CONCERNS; SAFETY PRECAUTION REINFORCE; URINAL, W/C & CALL COCHRAN IN REACH
[2018-10-01 15:45] VITALS: BP 162/96
--- NOTE | 2018-10-01 16:28 | NUR ---
PT LAYING IN BED WATCHING TV; SON AT BEDSIDE BROUGHT PT ZULY CHEW; DRESSING TO R FOOT HAS SM AMT OF WET DRAINAGE; ASK PT IF HE'S BEEN PUTTING WT ON FOOT PT STATES "NO, WHY" EXPLAINED TO PT DRESSING IS WET; PT STATES "OH WELL I HAVE TO STAND ON IT A LITTLE" AGAIN, SAFETY PRECAUTION REINFORCE; CALL COCHRAN IN REACH.
[2018-10-01 19:15] VITALS: BP 157/87
--- NOTE | 2018-10-01 19:30 | NUR ---
REPORT FROM SARAH BRAVO. PT OOB IN WHEELCHAIR AT NURSES STATION. ENCOURAGED PT TO ELEVATE RLE AND RE-EDUCATED PT ON NWB STATUS. DRESSING APPEARS TO BE CDI. IV SITE LOOKS HEALTHY. PT ASSISTED BACK TO BED. CALL LIGHT WITHIN REACH. REVIEWED SAFETY PRECAUTIONS. PT VERBALIZED UNDERSTANDING. WILL CONTINUE TO MONITOR.
--- NOTE | 2018-10-01 23:12 | NUR ---
PT NON-COMPLIANT WITH CALL LIGHT. ALERT AND ORIENTED. PT TRANSFERED SELF WITHOUT ASSISTANCE TO WHEEL CHAIR FROM BED. PT WHEELED SELF TO NURSES STATION REQUESTING IF IT WAS TIME FOR PAIN MEDICATIONS. INDUSTRIAL SALES REPRESENTATIVE EDUCATED PT ON LAST GIVEN DOSE OF PRN PAIN MEDICATIONS AND NEXT AVAILABLE TIME PT COULD HAVE PAIN MEDICATION. NO S/S OF PAIN NOTED. ENCOURAGED PT TO CALL FOR NEEDS AND EDUCATED ON NOT GETTING OOB WITHOUT ASSISTANCE DUE TO NWB STATUS OF RIGHT FOOT AND SAFETY. PT VERBALIZED UNDERSTANDING. PT ASSISTED BACK TO BED. RIGHT LEG REPOSITIONED AND ELEVATED ON PILLOWS. CALL LIGHT WITHIN REACH. WILL CONTINUE TO MONITOR.
[2018-10-02] VITALS (10 sets, daily range): BP systolic 113–152; BP diastolic 53–87
--- NOTE | 2018-10-02 02:22 | NUR ---
PT C/O PAIN 9-10 RIGHT FOOT. MEDICATED WITH PRN PAIN MEDICATION. ENCOURAGED PT TO KEEP ELEVATED AND REPOSITION NEEDED.
--- NOTE | 2018-10-02 04:30 | NUR ---
PT WHEELED SELF IN WHEELCHAIR TO NURSES STATION REQUESTING MOTRIN FOR ELBOW PAIN, DISCUSSED WITH PT ABOUT PRIOR PAIN MEDICATION THAT WAS ADMINISTERED. ENCOURAGED PT TO REST ELBOW AND PROVIDED ICE PACK AT THIS TIME. WILL CONTINUE TO MONITOR.
[2018-10-02 05:36] LABS: ANION GAP 15 (6-22 (CALC)); BUN 14 mg/dL (9-20); BUN/CREATININE RATIO 14 (12-20 (CALC)); CARBON DIOXIDE 25 mmol/l (22-30); CHLORIDE 102 mmol/l (95-108); GFR > 60 ML/MIN (>=60 (CALC)); GFR FOR AFR.AMER. > 60 ML/MIN (>=60 (CALC)); MAGNESIUM 2.1 mg/dL (1.6-2.3); POTASSIUM 4.8 mmol/l (3.5-5.1); SODIUM 137 mmol/l (137-146)
[2018-10-02 05:53] LABS: HEMATOCRIT 45.3 % (39.0-50.0); MEAN CELL VOLUME 89.2 fL CALC (80.0-100.0); MEAN CORPUSCULAR HGB 29.5 pG CALC (26.0-32.0); MEAN CORPUSCULAR HGB CONC 33.1 g/L CALC (32.0-36.0); RED BLOOD COUNT 5.08 mill/uL (4.70-6.10)
--- NOTE | 2018-10-02 07:20 | NUR ---
REPORT RECEIVED FROM SHELLY WEEMS;PT RESTING IN SEMI FOWLERS POSITION REPORTING ELBOW PAIN AND REQUESTING PAIN MEDICATION;INTRODUCED SELF TO PT AND POC DISCUSSED;RESPIRATIONS EVEN AND UNLABORED ON RA;PT ENCOURAGED TO KEEP RIGHT FOOT ELEVATED, DRESSING APPEARS CDI;PAIN MEDICATION SCHEDULE EDUCATED AND ICE PACK TO BE PROVIDED;PT DENIES ANY OTHER CURRENT NEEDS AND IS ENCOURAGED TO CALL FOR ASSISTANCE IF NEEDED;FALL PRECAUTIONS IN PLACE WITH BED IN THE LOWEST POSITION;RE-EDUCATED PT ON NON-WEIGHT BEARING TO RIGHT LEG AND PT VERBALIZES UNDERSTANDING;CALL LIGHT IN REACH;WILL CONTINUE TO MONITOR
--- NOTE | 2018-10-02 08:15 | NUR ---
PT REPORTS RIGHT FOOT PAIN RATING 10/10 ON THE PAIN SCALE AND REQUESTS PAIN MEDICATION;PT MEDICATED WITH PRN LORTAB AT THIS TIME,WILL MONITOR FOR EFFECTIVENESS
--- NOTE | 2018-10-02 08:25 | NUR ---
PT RESTING AT BEDSIDE;ALERT AND ORIENTED X3;VS OBTAINED AND ASSESSMENT COMPLETED;RESPIRATIONS EVEN AND UNLABORED ON RA,CLEAR LUNG SOUNDS NOTED;ABDOMEN DISTENDED/SOFT ON PALPATION AND ACTIVE IN ALL 4 QUADRANTS;WEAK PEDAL PULSES;RIGHT FOOT ELEVATED ON X2 PILLOWS,DRESSING CDI;PT EDUCATED ON SCHEDULED OR AT 1700 FOR POSSIBLE CLOSURE OF RIGHT FOOT AND VERBALIZES UNDERSTANDING;NPO DIET REINFORCED AND PT VERBALIZES UNDERSTANDING;#22G TO RIGHT WRIST FLUSHED BUT FOUND TO BE LEAKING, SITE REMOVED WITH CATHETER INTACT;NEW SITE TO BE STARTED;ACCUCHECK 116, NO COVERAGE NEEDED AT THIS TIME;PT DENIES ANY ADDITIONAL NEEDS AND IS INSTRUCTED TO CALL FOR ASSISTANCE IF NEEDED;FALL PRECAUTIONS IN PLACE WITH CALL LIGHT IN REACH;WILL CONTINUE TO MONITOR
--- NOTE | 2018-10-02 08:48 | NUR ---
PHYSICAL THERAPY AT BEDSIDE
--- NOTE | 2018-10-02 11:20 | NUR ---
#24G STARTED TO PT LEFT HAND BY SOPHIE UREÑA.
--- NOTE | 2018-10-02 11:50 | NUR ---
INFORMED CONSENT OBTAINED.
--- NOTE | 2018-10-02 11:50 | NUR ---
PT RESTING AT BEDSIDE;RESPIRATIONS EVEN AND UNLABORED ON RA;PT DENIES ANY CURRENT PAIN OR NEEDS;IV FLUIDS STARTED AT 100ML/HR PER ORDER TO #24G TO LEFT HAND;ACCUCHECK 139, NO COVERAGE NEEDED AT THIS TIME;PT DENIES ANY CURRENT NEEDS AND IS INSTRUCTED TO CALL FOR ASSISTANCE IF NEEDED;FALL PRECAUTIONS IN PLACE WITH CALL LIGHT IN REACH;WILL CONTINUE TO MONITOR
--- NOTE | 2018-10-02 16:28 | NUR ---
PT TRANSFERRED TO OR VIA STRETCHER AND OR STAFF IN STABLE CONDITION.
--- NOTE | 2018-10-02 19:44 | NUR ---
PT BACK TO ROOM VIA STRETCHER WITH OR STAFF; BEDSIDE REPORT RECEIVED FROM SOPHIE DUQUE. PT AWAKE AND ALERT; C/O MODERATE PAIN TO RIGHT FOOT; DRESSING CDI. ELEVATED ON 2 PILLOWS AND SCD APPLIED TO LLE. PT REQUESTING FOOT AT THIS TIME. POST OP VITALS IN PROGRESS. PT VERBLIZES UNDERSTANDING OF DIET AND NWB STATUS OF RLE.
--- NOTE | 2018-10-02 21:51 | NUR ---
PT SITTING UP EATING [employer] JEEVAN WHICH FAMILY BROUGHT IN. STATES THAT HE IS FEELING MUCH BETTER; VS STABLE. EDUCATED ON DIABETIC DIET. RLE ELEVATED ON 2 PILLOWS PER ORDERS. IS GIVEN AND PT DEMONSTRATED USE UP TO 3000.
--- NOTE | 2018-10-02 23:17 | NUR ---
PT REQUESTED PAIN MEDICATION FOR RIGHT FOOT; WAS ASLEEP WHEN NURSE ENTERED ROOM.
--- NOTE | 2018-10-02 23:26 | NUR ---
PT WOKE UP C/O 8/10 R FOOT PAIN; MORPHINE GIVEN AT THIS TIME.
[2018-10-03 00:23] VITALS: BP 106/64
--- NOTE | 2018-10-03 00:46 | NUR ---
PT ASLEEP AT THIS TIME WITH NO SIGNS OF DISTRESS. RESPIRATIONS EVEN AND UNLABORED ON ROOM AIR. IV FLUIDS INFUSING WITHOUT DIFFICULTY; IV SITE APPEARS HEALTHY. PT IS NMB TO RLE; HAS NOT GOT OUT OF BED SINCE ARRIVAL FROM OR EARLIER THIS SHIFT. USES CALL LIGHT PRN FOR ASSISTANCE. SAFETY MEASURES IN PLACE. CALL LIGHT WITHIN REACH.
--- NOTE | 2018-10-03 02:46 | NUR ---
PT REMOVED CPAP AND FELL ASLEEP WITH VAPE/E CIG IN HIS HAND. PT REMINDED NOT TO USE IN HOSPITAL AND KEEP IN BELONGINGS BAG. REQUESTS PAIN MEDICATION AT THIS TIME.
[2018-10-03 04:53] VITALS: BP 149/79
--- NOTE | 2018-10-03 05:18 | NUR ---
NO ACUTE CHANGES IN CONDITION THROUGHOUT THE NIGHT. REMAINS AFEBRILE. NO REQUESTS OR CONCERNS AT THIS TIME. CALL LIGHT WITHIN REACH.
--- NOTE | 2018-10-03 07:00 | NUR ---
REPORT RECEIVED FROM SOPHIE SANON;PT RESTING AT BEDSIDE WITH RIGHT FOOT HANGING OFF BED;INTRODUCED SELF TO PT AND POC DISCUSSED;RESPIRATIONS EVEN AND UNLABORED ON RA;PT EDUCATED TO KEEP RIGHT FOOT ELEVATED AND VERBALIZES UNDERSTANDING;NON-WEIGHT BEARING STATUS ALSO REINFORCED;IV FLUIDS CONTINUE TO INFUSE TO LEFT FOREARM WITH EASE;PT DENIES ANY CURRENT NEEDS AND IS INSTRUCTED TO CALL FOR ASSISTANCE IF NEEDED;FALL PRECAUTIONS IN PLACE WITH BED IN THE LOWEST POSITION AND CALL LIGHT IN REACH;WILL CONTINUE TO MONITOR
--- NOTE | 2018-10-03 08:02 | NUR ---
PT REPORTS RIGHT ELBOW PAIN RATING 5/10 ON THE PAIN SCALE AND REQUESTS PRN MOTRIN;PT MEDICATED ACCORDINGLY PER EMAR WITH MOTRIN 600MG PO;PT ENCOURAGED TO ELEVATE RIGHT ARM ON A PILLOW;PT REPORTS REMOVAL OF #24G TO LEFT HAND STATING "I JUST THREW IT OVER THERE BECAUSE YOU CAN'T PUT IT BACK IN";WILL CONTINUE TO MONITOR
--- NOTE | 2018-10-03 08:40 | NUR ---
PT RESTING IN SEMI FOWLERS POSITION;ASSESSMENT COMPLETED;PT ALERT AND ORIENTED X3;RESPIRATIONS EVEN AND UNLABORED ON RA,ENCOURAGED I.S. USAGE AND EDUCATED ON USE 10X PER HOUR;ABDOMEN DISTENDED/SOFT ON PALPATION AND HYPOACTIVE IN ALL 4 QUADRANTS, LAST BM 10/01/18;PT MEDICATED WITH PRN MOM AND PRUNE JUICE AT THIS TIME;PT POST OP 10/02/18 RIGHT I&D WITH ACHILLES TENDON LENGTHENING AND CLOSURE;CAST CDI AND PT EDUCATED ON CONTINUED ELEVATION;UNABLE TO PALPATE RIGHT PEDAL PULSES R/T DRESSING;WEAK LEFT PEDAL PULSE NOTED;PT REPORTS RIGHT FOOT PAIN RATING 8/10 ON THE PAIN SCALE AND REQUESTS PAIN MEDICATION;PT MEDICATED WITH PRN LORTAB PO;#22G TO LEFT FOREARM INFUSING NS @ 100ML/HR,SITE APPEARS HEALTHY;PT DENIES ANY ADDITIONAL NEEDS AT THIS TIME AND IS ENCOURAGED TO CALL FOR ASSISTANCE IF NEEDED;FALL PRECAUTIONS IN PLACE WITH CALL LIGHT IN REACH;WILL CONTINUE TO MONITOR
[2018-10-03 09:17] VITALS: BP 152/77
--- NOTE | 2018-10-03 11:50 | NUR ---
PT RESTING IN BED;RESPIRATIONS EVEN AND UNLABORED ON RA;IV SITE TO LEFT FOREARM CONTINUES TO INFUSE NS WITH EASE;PT REPORTS PAIN HAS DECREASED FROM A 8 TO A 4/10 AND REQUESTS TIME SCHEDULE FOR PAIN MEDICATION;ACCUCHECK 108,NO COVERAGED NEEDED;PT DENIES ANY ADDITIONAL NEEDS AND IS INSTRUCTED TO CALL FOR ASSISTANCE IF NEEDED;FALL PRECAUTIONS IN PLACE;WILL CONTINUE TO MONITOR
--- NOTE | 2018-10-03 12:45 | NUR ---
AT BEDSIDE DISCUSSING POC INCLUDING D/C HOME.
--- NOTE | 2018-10-03 14:06 | NUR ---
PT REPORTS PAIN TO RIGHT FOOT RATING 6/10 AND REQUESTS PAIN MEDICATION;PT MEDICATED WITH PRN LORTAB PO AT THIS TIME;WILL MONITOR FOR EFFECTIVENESS
--- NOTE | 2018-10-03 15:23 | NUR ---
SPOKE WITH 'S OFFICE;PT TO BE DISCHARGED WHILE CONTINUING TO BE NON-WEIGHT BEARING TO RIGHT FOOT.NO ASSISTED DEVICES ORDERED AT THIS TIME FOR DISCHARGE HOME;AWAITING RETURN CALL BACK FROM MD FOR NEW ORDERS;WILL CONTINUE TO MONITOR
[2018-10-03] MEDS ORDERED: LORTAB 5/3255 MG PO (15:48)
[2018-10-03 16:15] VITALS: BP 160/81
--- NOTE | 2018-10-03 16:15 | NUR ---
SPOKE WITH REGARDING PT BEING NON-WEIGHT BEARING;PER PT CAN USE CRUTCHES,KNEE SCOOTER OR WHEELCHAIR AT HOME.PRIMARY CARE DOCTOR TO WRITE SCRIPT.
--- NOTE | 2018-10-03 16:20 | NUR ---
NOTIFIED OF ORDER NEEDED FOR ASSISTED DEVICE.NO NEW ORDERS RECEIVED AT THIS TIME.
--- NOTE | 2018-10-03 16:25 | NUR ---
PER CASE MANAGEMENT AND PHYSICAL THERAPY PT REPORTS HE HAS SEVERAL PAIRS OF CRUTCHES AT HOME.
--- NOTE | 2018-10-03 16:28 | NUR ---
PT AGREES HE HAS SEVERAL PAIRS OF CRUCTCHES AT HOME AND STATES "ILL JUST HAVE MY BROTHER GET THEM FOR ME".PT AWARE OF PENDING D/C AND VERBALIZES UNDERSTANDING.
--- NOTE | 2018-10-03 16:38 | NUR ---
ALL DISCHARGE INSTRUCTIONS PROVIDED AT THIS TIME;PRESCRIPTION DISCUSSED INDEPTH;PT ENCOURAGED TO FOLLOW UP WITH AND PRIMARY CARE DOCTOR, PT ALSO ENCOURAGED TO REMAIN NON-WEIGHT BEARING TO RIGHT FOOT;IV SITE REMOVED WITH CATHETER INTACT;PT DENIES ANY CURRENT QUESTIONS OR NEEDS;WHEELCHAIR TO BE PROVIDED FOR D/C HOME;AWAITING BROTHER FOR TRANSPORTATION HOME.
--- NOTE | 2018-10-03 16:48 | NUR ---
Discharge instructions given. Patient verbalizes understanding of same. Discharged in stable condition via Wheelchair to Home with family. All belongings sent with pt. Pt transported via wheelchair to lobby accompanied by volunteer in stable condition.awaiting brother for transportation home.
--- NOTE | 2018-10-03 16:50 | NUR ---
HOME MEDICATION RETURNED TO PATIENT FOR D/C [facility]OM[facility].
== END 2018-10-03 16:48 | disposition home or self-care (01) | DRG 617 ==
LOC: ED 16:16 → ED-I 18:52 → ED 19:02 → MS2 19:03
PROVIDERS: Family Medicine; Internal Medicine Nephrology; Nurse Practitioner Family; ADMIT Internal Medicine; ATTEND Internal Medicine
PROC: 0Y6M0Z9 Detachment at Right Foot, Partial 1st Ray, Open Approach (ICD-10-PCS; principal; 2018-09-25)
PROC: 0Y6M0ZB Detachment at Right Foot, Partial 2nd Ray, Open Approach (ICD-10-PCS; 2018-09-25)
PROC: 0Y6M0ZC Detachment at Right Foot, Partial 3rd Ray, Open Approach (ICD-10-PCS; 2018-09-25)
PROC: 0Y6M0ZD Detachment at Right Foot, Partial 4th Ray, Open Approach (ICD-10-PCS; 2018-09-25)
PROC: 0JBQ0ZZ Excision of Right Foot Subcutaneous Tissue and Fascia, Open Approach (ICD-10-PCS; 2018-09-29)
PROC: 0L8N0ZZ Division of Right Lower Leg Tendon, Open Approach (ICD-10-PCS; 2018-10-02)
PROC: 0QBN0ZZ Excision of Right Metatarsal, Open Approach (ICD-10-PCS; 2018-10-02)
PROC: 0HXMXZZ Transfer Right Foot Skin, External Approach (ICD-10-PCS; 2018-10-02)
PROC: 0QBN0ZZ Excision of Right Metatarsal, Open Approach (ICD-10-PCS; 2018-10-02)
PROC: 0QBN0ZZ Excision of Right Metatarsal, Open Approach (ICD-10-PCS; 2018-10-02)
PROC: 0QBN0ZZ Excision of Right Metatarsal, Open Approach (ICD-10-PCS; 2018-10-02)
PROC: 0QBN0ZZ Excision of Right Metatarsal, Open Approach (ICD-10-PCS; 2018-10-02)
DX: E11.69 Type 2 diabetes mellitus with other specified complication (principal); L03.115 Cellulitis of right lower limb; L97.419 Non-pressure chronic ulcer of right heel and midfoot with unspecified severity; L02.611 Cutaneous abscess of right foot; M86.9 Osteomyelitis, unspecified; E11.52 Type 2 diabetes mellitus with diabetic peripheral angiopathy with gangrene; I96 Gangrene, not elsewhere classified; E11.621 Type 2 diabetes mellitus with foot ulcer; I10 Essential (primary) hypertension; E78.5 Hyperlipidemia, unspecified; G47.419 Narcolepsy without cataplexy; F17.210 Nicotine dependence, cigarettes, uncomplicated; T45.526A Underdosing of antithrombotic drugs, initial encounter; Z91.128 Patient's intentional underdosing of medication regimen for other reason; Z95.820 Peripheral vascular angioplasty status with implants and grafts; Z87.891 Personal history of nicotine dependence; Z89.421 Acquired absence of other right toe(s); Z79.02 Long term (current) use of antithrombotics/antiplatelets; E11.42 Type 2 diabetes mellitus with diabetic polyneuropathy; B95.1 Streptococcus, group B, as the cause of diseases classified elsewhere; Z79.84 Long term (current) use of oral hypoglycemic drugs; Z91.11 Patient's noncompliance with dietary regimen; K59.00 Constipation, unspecified
CPT/HCPCS: J0131; J2710; J3370

== ENCOUNTER 2019-02-14 23:05 | Emergency (ER) | payer SELFPAY ==
[~2019-02-14] VITALS: Ht 180.3 cm; Wt 90.0 kg
[~2019-02-14 23:05] MED LIST changes: +ASPIRIN81 MG PO; +BUPROPION HCL300 MG PO; +LIPITOR20 M1 PO; +LOPID600 MG PO; +LORTAB 5/3255 MG PO; +LYRICA100 MG PO; +METFORMIN850 MG PO; +NAPROXEN250 MG PO; +NIACIN SR500 M1 PO; +SINGULAIR10 MG PO
[2019-02-14] MEDS ORDERED: LISINOP/HCTZ1 TA1 PO (23:37)
[2019-02-15 01:05] VITALS: BP 110/65
== END 2019-02-15 01:05 | disposition home or self-care (01) | DRG 605 ==
LOC: ED 23:05
PROC: 0HQ0XZZ Repair Scalp Skin, External Approach (ICD-10-PCS; principal; 2019-02-14)
DX: S01.01XA Laceration without foreign body of scalp, initial encounter (principal); I95.1 Orthostatic hypotension; I10 Essential (primary) hypertension; E11.40 Type 2 diabetes mellitus with diabetic neuropathy, unspecified; G47.419 Narcolepsy without cataplexy; W18.39XA Other fall on same level, initial encounter; Y92.000 Kitchen of unspecified non-institutional (private) residence as the place of occurrence of the external cause; Z79.02 Long term (current) use of antithrombotics/antiplatelets

== ENCOUNTER 2019-07-25 02:19 | Emergency (ER) | payer BC ==
[~2019-07-25] VITALS: Ht 180.3 cm; Wt 83.4 kg
[~2019-07-25 02:19] MED LIST changes: +LISINOP/HCTZ1 TA1 PO
[2019-07-25] MEDS ORDERED: LORTAB 1010 MG PO (03:12)
[2019-07-25 03:36] VITALS: BP 139/80
== END 2019-07-25 03:35 | disposition home or self-care (01) | DRG 594 ==
LOC: ED 02:19
DX: L97.419 Non-pressure chronic ulcer of right heel and midfoot with unspecified severity (principal); I10 Essential (primary) hypertension; I73.9 Peripheral vascular disease, unspecified; G62.9 Polyneuropathy, unspecified; F17.200 Nicotine dependence, unspecified, uncomplicated; Z95.828 Presence of other vascular implants and grafts; Z89.431 Acquired absence of right foot

== ENCOUNTER 2019-10-23 19:50 | Observation (INO) | payer BC ==
[~2019-10-23] VITALS: Ht 180.3 cm; Wt 85.4 kg
[~2019-10-23 19:50] MED LIST changes: +LORTAB 1010 MG PO
--- NOTE | 2019-10-23 20:15 | NUR ---
PT RETURNED TO WAITING ROOM
--- NOTE | 2019-10-23 21:37 | NUR ---
PATIENT AMBULATORY TO ROOM 6. PLACED ON MONITOR, UNDRESSED INTO A GOWN. AWAITING ON EVAL.
[2019-10-23 23:22] LABS: IMMATURE GRANULOCYTES 0.5 % (0.0-5.0); MEAN CELL VOLUME 88.9 fL CALC (80.0-100.0); MEAN CORPUSCULAR HGB 29.8 pG CALC (26.0-32.0); MEAN CORPUSCULAR HGB CONC 33.5 g/L CALC (32.0-36.0); NEUT# 6.87 thou/uL (1.82-7.42); RED BLOOD COUNT 5.87 mill/uL (4.70-6.10); RED CELL DISTRI WIDTH 15.5 % (11.5-15.5)
[2019-10-23 23:23] LABS: HEMATOCRIT 52.2 % (39.0-50.0); HEMOGLOBIN 17.5 g/dl (14.0-18.0)
[2019-10-23 23:36] LABS: ACT PARTIAL THROMBO TIME 29.6 SECONDS (20.0-32.5); ALKALINE PHOSPHATASE 95 u/l (38-126); ANION GAP 15 (6-22 (CALC)); BUN 17 mg/dL (8-23); BUN/CREATININE RATIO 19 (12-20 (CALC)); CARBON DIOXIDE 25 mmol/l (22-30); CHLORIDE 102 mmol/l (95-108); CREATININE 0.9 mg/dL (0.7-1.3); ETHYL ALCOHOL 0 mg/dl (0-30); GFR > 60 ML/MIN (>=60 (CALC)); GFR FOR AFR.AMER. > 60 ML/MIN (>=60 (CALC)); PROTHROMBIN TIME 10.7 SECONDS (9.0-12.5); SGOT/AST 20 u/l (19-48); SODIUM 139 mmol/l (137-146)
[2019-10-23 23:47] LABS: ALBUMIN 4.6 g/dL (3.2-5.0); TOTAL PROTEIN 7.3 g/dL (6.3-8.2)
--- NOTE | 2019-10-24 01:13 | NUR ---
REPORT TO FLOOR. IV STARTED. VSS.
--- NOTE | 2019-10-24 01:21 | NUR ---
PT RESTING. NAD. NERVOUS ABOUT GOING HOME TONIGHT. PT TO FLOOR WITH POCKET MONITOR. NAD.
[2019-10-24 01:28] VITALS: BP 183/95
--- NOTE | 2019-10-24 01:30 | NUR ---
RECEIVED REPORT FROM NURSE MITTAL, PATIENT TRANSPORTED VIA BED, PATIENT ORIENTED TO ROOM AND CALL LIGHT SYSTEM.
--- NOTE | 2019-10-24 02:00 | NUR ---
PATIENTY PLACED ON CONTACT ISOLATION FOR HX OF MERSA.
[2019-10-24 02:26] VITALS: BP 121/82
[2019-10-24 03:31] VITALS: BP 122/75
--- NOTE | 2019-10-24 04:09 | NUR ---
PATIENT ALERT ORINETED DENIES PAIN OR DISCOMFORTS WITH SALINE LOCK ON LEFT WRIST PATENT FLUSHES WELL, REMAINS ON TELE, CURRENTLY RESTING INE EYES CLOSED, WEARING CPAP CALL LIGHT AT REACH.
[2019-10-24 05:28] LABS: HEMOGLOBIN 17.3 g/dl (14.0-18.0); IMMATURE GRANULOCYTES 0.6 % (0.0-5.0); MEAN CELL VOLUME 89.5 fL CALC (80.0-100.0); MEAN CORPUSCULAR HGB 29.8 pG CALC (26.0-32.0); MEAN CORPUSCULAR HGB CONC 33.3 g/L CALC (32.0-36.0); NEUT# 5.55 thou/uL (1.82-7.42); RED BLOOD COUNT 5.81 mill/uL (4.70-6.10); RED CELL DISTRI WIDTH 15.4 % (11.5-15.5)
[2019-10-24 05:42] LABS: ANION GAP 14 (6-22 (CALC)); BUN 16 mg/dL (8-23); BUN/CREATININE RATIO 19 (12-20 (CALC)); CARBON DIOXIDE 24 mmol/l (22-30); CHLORIDE 103 mmol/l (95-108); CREATININE 0.8 mg/dL (0.7-1.3); GFR > 60 ML/MIN (>=60 (CALC)); GFR FOR AFR.AMER. > 60 ML/MIN (>=60 (CALC)); POTASSIUM 3.9 mmol/l (3.5-5.1); SODIUM 137 mmol/l (137-146)
--- NOTE | 2019-10-24 06:42 | NUR ---
NO URINE SAMPLE YET AT THIS TIME, LAST VOID WAS AT 2AM, BLADDER SCAN DONE 239ML.
[2019-10-24 07:38] VITALS: BP 146/85
--- NOTE | 2019-10-24 08:00 | NUR ---
PT ALERT AND ORIENTED X 3. LUNGS CLEAR, DIMINISHED, RA. NO REPORT OF MIDSTERNAL PAIN OR OTHERWISE.
[2019-10-24 08:47] VITALS: BP 146/85
[2019-10-24 08:51] LABS: URINE BILIRUBIN - DIPSTICK NEGATIVE (NEGATIVE); URINE BLOOD DIPSTICK NEGATIVE (NEGATIVE); URINE COLOR YELLOW; URINE GLUCOSE - DIPSTICK NEGATIVE (NEGATIVE); URINE KETONE NEGATIVE (NEGATIVE); URINE LEUK ESTERASE NEGATIVE (NEGATIVE); URINE NITRITE - DIPSTICK NEGATIVE (Negative); URINE PROTEIN - DIPSTICK NEGATIVE (NEG-TRACE); URINE UROBILINOGEN - DIPSTICK 0.2 E.U./dL (0.2)
[2019-10-24 08:56] LABS: BARBITURATES NEGATIVE (NEGATIVE); COCAINE NEGATIVE (NEGATIVE); METHADONE NEGATIVE (NEGATIVE); OXCYCODONE NEGATIVE (NEGATIVE); TETRAHYDROCANNABIONOL POSITIVE (NEGATIVE); TRICYLIC ANTIDEPRESSANTS NEGATIVE (NEGATIVE)
[2019-10-24] MEDS ORDERED: LOPRESSOR25 M1 PO (11:38)
--- NOTE | 2019-10-24 12:53 | NUR ---
PT HAS BEEN DISCHARGED TO HOME. PT LEAVES [facility] AMBUL[facility], NO COMPLAINT OF CHEST PAIN OR SHORTNESS OF BREATH. PT STABLE, ADVISED TO FOLLOW UP WITH HIS PHYSICIAN.
== END 2019-10-24 12:48 | disposition home or self-care (01) | DRG 313 ==
LOC: ED 19:50 → ED-I 23:55 → ED 10-24 00:13 → MS2 10-24 00:14
PROVIDERS: ADMIT Internal Medicine; ATTEND Internal Medicine
DX: R07.9 Chest pain, unspecified (principal); I10 Essential (primary) hypertension; E78.5 Hyperlipidemia, unspecified; I73.9 Peripheral vascular disease, unspecified; G62.9 Polyneuropathy, unspecified; T45.526A Underdosing of antithrombotic drugs, initial encounter; Z91.128 Patient's intentional underdosing of medication regimen for other reason; Z87.891 Personal history of nicotine dependence; Z79.82 Long term (current) use of aspirin; Z79.02 Long term (current) use of antithrombotics/antiplatelets; Z95.820 Peripheral vascular angioplasty status with implants and grafts
CPT/HCPCS: G0378

== ENCOUNTER 2020-09-03 11:37 | Inpatient (IN) | payer BC ==
[~2020-09-03] VITALS: Ht 180.3 cm; Wt 89.0 kg
[~2020-09-03 11:37] MED LIST changes: +LOPRESSOR25 M1 PO
--- NOTE | 2020-09-03 11:40 | NUR ---
PT ASSISTED TO ROOM 9 VIA W/C.
--- NOTE | 2020-09-03 11:50 | NUR ---
PT PRESENTS WITH WOUND TO RIGHT FOOT, CURRENTLY BEING SEEN BY WOUND CARE AND WAS INSTRUCTED TO BE SEEN IN ED FOR ADMISSION R/T GAS IN SOFT TISSUE. DRESSING REMOVED FROM LEFT FOOT, DRAINAGE NOTED TO BANDAGE. PREV PARTIAL AMPUTATION TO FOOT, OPEN WOUND NOTED WITH PACKING IN PLACE. IV ACCESS INITIATED WITH BLOOD SPECIMENS OBTAINED. CALL LIGHT GIVEN.
[2020-09-03 12:24] LABS: IMMATURE GRANULOCYTES 0.5 % (0.0-5.0); MEAN CELL VOLUME 90.4 fL CALC (80.0-100.0); MEAN CORPUSCULAR HGB 29.7 pG CALC (26.0-32.0); MEAN CORPUSCULAR HGB CONC 32.8 g/dL CAL (32.0-36.0); NEUT# 5.82 thou/uL (1.82-7.42); RED BLOOD COUNT 5.02 mill/uL (4.70-6.10); RED CELL DISTRI WIDTH 14.6 % (11.5-15.5)
[2020-09-03 12:25] LABS: HEMATOCRIT 45.4 % (39.0-50.0); HEMOGLOBIN 14.9 g/dl (14.0-18.0)
[2020-09-03] MEDS ORDERED: LYRICA50 MG PO (12:28)
--- NOTE | 2020-09-03 12:30 | NUR ---
PORT XRAY COMPLETED AT THIS TIME. ADVISED PT OF WAIT TIME FOR RESULTS AND ORDER FOR US. VERBALIZED UNDERSTANDING. DENIES ANY NEEDS. CALL LIGHT WITHINR REACH.
[2020-09-03] MEDS ORDERED: LISINOPRIL20 MG PO (12:33)
[2020-09-03] MEDS ORDERED: LASIX 40 MG TAB40 MG PO (12:33)
[2020-09-03] MEDS ORDERED: LORTAB 5/3255 MG PO (12:34)
[2020-09-03] MEDS ORDERED: CLINDAMYCIN HY300 MG PO (12:35)
[2020-09-03] MEDS ORDERED: POT CHLORIDE10 ME5 PO (12:36)
[2020-09-03 12:41] LABS: PROTHROMBIN TIME 9.8 SECONDS (9.0-12.5)
--- NOTE | 2020-09-03 12:46 | NUR ---
PT REQUESTING FOOD TRAY AND BEVERAGE. DR MARIE NOTIFIED AND ADVISED TO MAINTAIN PT NPO UNTIL RESULTS AND PLAN OF CARE CONFIGURED. PT ADVISED OF SAME.
[2020-09-03 12:47] LABS: ALKALINE PHOSPHATASE 73 u/l (38-126); ANION GAP 12 (6-22 (CALC)); BUN 16 mg/dL (8-23); BUN/CREATININE RATIO 15 (12-20 (CALC)); C-REACTIVE PROTEIN 7.1 mg/dL (0-0.9); CARBON DIOXIDE 24 mmol/l (22-30); CHLORIDE 107 mmol/l (95-108); CREATININE 1.1 mg/dL (0.7-1.3); GFR > 60 ML/MIN (>=60 (CALC)); GFR FOR AFR.AMER. > 60 ML/MIN (>=60 (CALC)); POTASSIUM 4.3 mmol/l (3.5-5.1); SGOT/AST 22 u/l (19-48); SODIUM 138 mmol/l (137-146); TOTAL PROTEIN 7.2 g/dL (6.3-8.2)
[2020-09-03 12:49] LABS: BILIRUBIN, TOTAL 0.9 mg/dL (0.0-1.4)
--- NOTE | 2020-09-03 13:16 | NUR ---
MARIAM,SHANE BEDSIDE
--- NOTE | 2020-09-03 13:24 | NUR ---
PT TO US VIA WC.
--- NOTE | 2020-09-03 14:25 | NUR ---
FOOD TRAY PROVIDED
--- NOTE | 2020-09-03 14:30 | NUR ---
REPORT CALLED TO SOPHIE COLLINS ON MS. ATTEMPTED TO TRANSPORT PT BUT REQUESTED TO FINISH HIS LUNCH MEAL BEFORE LEAVING.
--- NOTE | 2020-09-03 14:45 | NUR ---
Admission Note Report Given to: DENNIS Transported by: X Wheelchair Stretcher Transported with: Nurse X Transporter X Patent IV O2 Childbirth And Infant Care Teacher Location: ICU X MS2 PT TRANSPORTED TO MS 272 IN STABLE CONDITION.
--- NOTE | 2020-09-03 14:53 | NUR ---
PATIENT ARRIVED TO FLOOR VIA WHEELCHAIR AT THIS TIME. REPORT GIVEN TO THIS NURSE BY GENESIS BARRIOS. PATIENT ALERT AND ORIENTED AT THIS TIME X 3. PATIENT ORIENTED TO ROOM AND SURROUNDINGS. PATIENT CALL LIGHT WITHIN REACH AND SIDERAILS UP X 2 AND PATIENT VERBALIZES UNDERSTANDING HOW TO USE CALL LIGHT. PATIENT STATED PAIN LEVEL IS A 5 AT THIS TIME AND STATES HE USES MARIJUANA AND COCAINE ONE OR TWICE A WEEK ALONG WITH HIS HYDROCODONE 1O/325 FOR PAIN RELIEF WHILE AT HOME. PATIENT RT FOOT EXHIBITS FOUL ODOR AND FREDRICK SKIN AROUND AREA OF WOUND THAT WAS PREVIOUSLY PACKED AT WOUND CARE CLINIC. PATIENTS RIGHT FOOT IS PREVIOUSLY PARTIALLY AMPUTATED. PATIENT CAN STAND AND WALKS WITHOUT ASSIST. PATIENT WAS EDUCATED ON CALLING OUT FOR HELP PRIOR TO GETTING UP. PATIENT DID BRING OWN C-PAP FOR NIGHTLY USE. RESPIRATORY CONTACTED REGARDING SET UP OF C-PAP. PATIENT AT THIS TIME DENIES ALL OTHER NEEDS.
[2020-09-03 15:20] VITALS: BP 132/72
--- NOTE | 2020-09-03 15:44 | NUR ---
S: LILO BURRIS is a 60 M who presents with skin/soft tissue infx. All medications in patient's chart were reviewed. O: VS: BP 134/70 MMHG, P 83 BPM, RR 16 BREATHS/MIN, T 97 F W 90 KG, HT 71 IN, Scr 1.1 MG/DL, CrCl 88.6 ML/MIN A: Blood culture is pending P: Patient is on ZOSYN 3.375G IV Q6H. Vancomycin ordered for pharmacy to dose. Start Vancomycin 1250MG IV Q12H. Vancomycin trough is drawn before the 4th dose on 09/05 @ 1200. Vancomycin goal trough is between 10-15 mcg/ml. Pharmacy will follow and or advise on antibiotics use as needed.
[2020-09-03 19:00] VITALS: BP 133/67
--- NOTE | 2020-09-03 20:03 | NUR ---
Patient resting quietly in bed at this time, resident alert and oriented able to make needs known, IV fluids running, patient tolerating well. Call light within reach, bed in lowest position.
--- NOTE | 2020-09-03 22:41 | NUR ---
Patient educated on order for NPO after midnight for procedure, patient verbalized understanding.
--- NOTE | 2020-09-03 23:59 | NUR ---
Patient asleep in bed at this time, no c/o pain or distress noted. IV fluids running and IV ABT started. Call light within reach, bed in lowest position.
[2020-09-04] VITALS (9 sets, daily range): BP systolic 137–170; BP diastolic 66–86
--- NOTE | 2020-09-04 03:45 | NUR ---
Patient c/o muscle pain 8/10 Left chest area, denies any SOB or dizziness. Vital signs stable, pain medication given per order, will continue to monitor.
[2020-09-04 05:38] LABS: HEMATOCRIT 43.6 % (39.0-50.0); MEAN CELL VOLUME 90.8 fL CALC (80.0-100.0); MEAN CORPUSCULAR HGB 29.2 pG CALC (26.0-32.0); MEAN CORPUSCULAR HGB CONC 32.1 g/dL CAL (32.0-36.0); RED BLOOD COUNT 4.8 mill/uL (4.70-6.10); RED CELL DISTRI WIDTH 14.5 % (11.5-15.5)
--- NOTE | 2020-09-04 05:47 | NUR ---
Patient c/o pain to left chest and left upper back area, reports feeling of muscle pulling pain 8/10, pain medication given per order, pain decrease to 6/10, BASEBALL GLOVE STUFFER notified, received new orders. Will continue to monitor.
[2020-09-04 06:04] LABS: ALBUMIN 3.3 g/dL (3.2-5.0); ALKALINE PHOSPHATASE 71 u/l (38-126); ANION GAP 9 (6-22 (CALC)); BILIRUBIN, TOTAL 0.6 mg/dL (0.0-1.4); BUN 13 mg/dL (8-23); BUN/CREATININE RATIO 13 (12-20 (CALC)); CARBON DIOXIDE 26 mmol/l (22-30); CHLORIDE 108 mmol/l (95-108); GFR > 60 ML/MIN (>=60 (CALC)); GFR FOR AFR.AMER. > 60 ML/MIN (>=60 (CALC)); POTASSIUM 4.2 mmol/l (3.5-5.1); SGOT/AST 19 u/l (19-48); SODIUM 139 mmol/l (137-146)
[2020-09-04 06:21] LABS: TOTAL PROTEIN 5.6 g/dL (6.3-8.2)
--- NOTE | 2020-09-04 07:00 | NUR ---
PATIENT IN BED AT THIS TIME ALERT AND ORIENTED X3 CALL LIGHT WITHIN REACH RT FOOT ELEVATED ON ONE PILLOW AT THIS TIME DRESSING INTACT. PATIENT NPO FOR SURGERY AT THIS TIME STATES HIS PAIN IS ONLY A THREE ON A PAIN SCALE OF 0-10.
--- NOTE | 2020-09-04 12:36 | NUR ---
PATIENT IN BED AT THIS TIME STATES PAIN IS STILL A 3 ON A PAIN SCALE OF 0/10. DENIES ANY NEEDS AT THIS TIME. STILL WAITING FOR SURGERY.
--- NOTE | 2020-09-04 13:30 | NUR ---
PATIENT TAKEN DOWN TO RADIOLOGY AT THIS TIME FOR MRI AND PICC LINE INSERTION. PATIENT RIGHT FOOT DRESSED AT THIS TIME AND PATIENT IN WHEELCHAIR FOR TRANSPORT.
--- NOTE | 2020-09-04 16:17 | NUR ---
PATIENT REMAINS IN SURGERY AT THIS TIME.
--- NOTE | 2020-09-04 18:17 | NUR ---
CALLED [facility] WOUND [facility]AC AT SPOKE TO MARYANN AND WAS GIVEN CONFIRMATION NUMBER [id number]. THE WOUND VAC NUMBER IS [id number].
--- NOTE | 2020-09-04 19:09 | NUR ---
REPORT FROM ZAHEER BARRIOS. PT REMAINS OFF UNIT IN OR AT THIS TIME.
--- NOTE | 2020-09-04 19:26 | NUR ---
PT ARRIVED TO FLOOR VIA STRETCHER ACCOMPAINED BY OR STAFF. PT ORIENTED X4, DROWSY. SOFT CAST NOTED TO KASSANDRA CLINE. PT ABLE TO TRANSFER SELF FROM STRETCHER TO BED BY SLIDING SELF OVER. NEWLY PLACED PICC NOTED TO KASSANDRA TALAVERA. SCD APPLIED TO LLE. DISCUSSED POC. PT VERBALIZED UNDERSTANDING. CALL LIGHT WITHIN REACH. WILL CONTINUE TO MONITOR.
--- NOTE | 2020-09-04 20:13 | NUR ---
PT MEDICATED FOR RIGHT LEG PAIN 10/10 WITH PRN PERCOCET. RLE ELEVATED ON PILLOWS. DISCUSSED STRICT NWB, PT VERBALIZED UNDERSTANDING. ICE WATER PROVIDED, PT TOLERATING WELL. CALL LIGHT WITHIN REACH. WILL CONTINUE TO MONITOR.
--- NOTE | 2020-09-05 00:52 | NUR ---
PT RESTING IN BED WITH EYES CLOSED. WAKES EASILY. NO APPARENT DISTRESS NOTED. RLE REMAINS ELEVATED ON PILLOW. PT DENIES ANY PAIN OR DISCOMFORT AT THIS TIME. SCD TO LLE. GINGERALE PROVIDED UPON REQUEST. PT DENIES ANY NAUSEA. CALL LIGHT WITHIN REACH. WILL CONTINUE TO MONITOR.
[2020-09-05 04:00] VITALS: BP 140/77
--- NOTE | 2020-09-05 04:50 | NUR ---
LABS OBTAINED FROM PICC PER PROTOCOL. PT TOLERATED WELL. PT C/O 05/05 IN RLE. WILL MEDICATE ORDERED. PT DENIES ANY OTHER CURRENT WANTS OR NEEDS. NO APPARENT DISTRESS NOTED. CALL LIGHT WITHIN REACH. WILL CONTINUE TO MONITOR.
[2020-09-05 06:24] LABS: HEMATOCRIT 40.4 % (39.0-50.0); HEMOGLOBIN 13.1 g/dl (14.0-18.0); MEAN CELL VOLUME 91.2 fL CALC (80.0-100.0); MEAN CORPUSCULAR HGB 29.6 pG CALC (26.0-32.0); MEAN CORPUSCULAR HGB CONC 32.4 g/dL CAL (32.0-36.0); RED BLOOD COUNT 4.43 mill/uL (4.70-6.10); RED CELL DISTRI WIDTH 13.9 % (11.5-15.5)
[2020-09-05 06:41] LABS: ANION GAP 7 (6-22 (CALC)); BUN 14 mg/dL (8-23); BUN/CREATININE RATIO 12 (12-20 (CALC)); CARBON DIOXIDE 28 mmol/l (22-30); CHLORIDE 106 mmol/l (95-108); CREATININE 1.1 mg/dL (0.7-1.3); GFR > 60 ML/MIN (>=60 (CALC)); GFR FOR AFR.AMER. > 60 ML/MIN (>=60 (CALC)); SODIUM 137 mmol/l (137-146)
--- NOTE | 2020-09-05 06:55 | NUR ---
REPORT RECEIVED FROM SHELLY WEEMS. PT RESTING IN BED, NO S/S OF DISTRESS AT THIS TIME. SAFETY PRECAUTIONS IN PLACE. WILL CONTINUE TO MONITOR.
--- NOTE | 2020-09-05 08:16 | NUR ---
DR. OREILLY AND BRYAN BAINS AT BEDSIDE DISCUSSING PLAN OF CARE.
--- NOTE | 2020-09-05 08:30 | NUR ---
PT RESTING IN BED, ALERT AND ORIENTED. RESPIRATIONS ARE EVEN AND UNLABORED ON RA. LUNGS SOUND CLEAR. PT REPORTS PAIN IN RIGHT FOOT RATING IT A 8/10. PT TO BE MEDICATED. SAFETY PRECAUTIONS IN PLACE. WILL CONTINUE TO MONITOR.
[2020-09-05 08:37] VITALS: BP 153/71
--- NOTE | 2020-09-05 11:00 | NUR ---
PT NOTIFIED METAL TANK ERECTOR OF BLOOD COMING THROUGH DRESSING, TO BE NOTIFIED.
--- NOTE | 2020-09-05 11:20 | NUR ---
PT RESTING IN BED, DRESSING REINFORCED PER MD ORDERS. PT TOLERATED WELL.
--- NOTE | 2020-09-05 13:25 | NUR ---
S: LILO BURRIS is a 60 M who presents with infection of right foot. . He has a history of hypertension, neuropathy, OA, CHF, hyperlipidemia, anxiety and depression and sleep apnea. All medications in patient's chart were reviewed. O: VS: BP 153/71 mm hg, P 55 bpm, RR 18 breaths per min,T 97.3 F W 89 kg, HT 180, Scr=1.1 mg/dL, CrCl= 87.7 ml/min A: Wound culture is pending. P: Patient is on Zosyn 3.375 gm Q6H IV. Vancomycin ordered for pharmacy to dose. continue Vancomycin 1,250 mg IV Q12H. Vancomycin trough is drawn before the dose on 09/06/20 @ 12:00. Vancomycin trough is 14. Pharmacy will follow and continue antibiotic use as needed.
--- NOTE | 2020-09-05 13:40 | NUR ---
PT BP IS ELIVATED. ANRP NOTIFIED NEW ORDERS OBTAINED AND TO BE CARRIED OUT.
--- NOTE | 2020-09-05 13:45 | NUR ---
WOUND CARE AT BEDSIDE CHANGING DRESSING TO RIGHT FOOT, PT TOLERATED WELL.
[2020-09-05 15:10] VITALS: BP 168/84
--- NOTE | 2020-09-05 16:03 | NUR ---
PT SEVERE PAIN IN RIGHT FOOT, MD NOTIFIED ORDERS OBTAINED AND TO BE CARRIED OUT. SAFETY PRECAUTIONS IN PLACE. WILL CONTINUE TO MONITOR.
[2020-09-05 16:30] VITALS: BP 146/75
--- NOTE | 2020-09-05 19:01 | NUR ---
REPORT FROM YENY BARRIOS. ASSUME PT CARE AT THIS TIME.
[2020-09-05 20:00] VITALS: BP 148/74
--- NOTE | 2020-09-05 20:23 | NUR ---
PT MEDICATED FOR RIGHT LEG PAIN 05/05 WITH PRN PERCOCET. PT SITTING UP AT BEDSIDE DANGLING FOOT, DISCUSSED STRICT NWB AND ELEVATION OF BLE, PT VERBALIZED UNDERSTANDING. DRESSING TO RLE, CDI. PRUNE JUICE PROVIDED AT THIS TIME. CALL LIGHT WITHIN REACH. WILL CONTINUE TO MONITOR.
--- NOTE | 2020-09-06 00:12 | NUR ---
PT SITTING UP IN BED WATCHING TV. ALERT AND ORIENTED. NO APPARENT DISTRESS NOTED. ENCOURAGED ELEVATION OF RLE. IV ABT INFUSING WITHOUT DIFFICULTY. NO CURRENT WANTS OR NEEDS. CALL LIGHT WITHIN REACH. WILL CONTINUE TO MONITOR.
[2020-09-06 04:00] VITALS: BP 153/78
--- NOTE | 2020-09-06 05:25 | NUR ---
LABS OBTAINED FROM PICC LINE, PER PROTOCOL. PT TOLERATED WELL. IV ABT INITIATED. NO CURRENT WANTS OR NEEDS. PT RESTING IN BED WITH RLE ELEVATED ON PILLOWS. CALL LIGHT WITHIN REACH. WILL CONTINUE TO MONITOR.
[2020-09-06 05:47] LABS: HEMATOCRIT 38.7 % (39.0-50.0); HEMOGLOBIN 12.7 g/dl (14.0-18.0); MEAN CELL VOLUME 89.2 fL CALC (80.0-100.0); MEAN CORPUSCULAR HGB 29.3 pG CALC (26.0-32.0); MEAN CORPUSCULAR HGB CONC 32.8 g/dL CAL (32.0-36.0); RED BLOOD COUNT 4.34 mill/uL (4.70-6.10); RED CELL DISTRI WIDTH 13.6 % (11.5-15.5)
[2020-09-06 06:09] LABS: ANION GAP 9 (6-22 (CALC)); BUN 10 mg/dL (8-23); BUN/CREATININE RATIO 10 (12-20 (CALC)); CARBON DIOXIDE 28 mmol/l (22-30); CHLORIDE 104 mmol/l (95-108); CREATININE 1.1 mg/dL (0.7-1.3); GFR > 60 ML/MIN (>=60 (CALC)); GFR FOR AFR.AMER. > 60 ML/MIN (>=60 (CALC)); SODIUM 138 mmol/l (137-146)
--- NOTE | 2020-09-06 06:55 | NUR ---
REPORT RECEIVED FROM SHELLY WEEMS. PT RESTING IN BED. FREE FROM DISTRESS AT THIS TIME. SAFETY PRECAUTIONS IN PLACE. WILL CONTINUE TO MONTIOR.
--- NOTE | 2020-09-06 09:30 | NUR ---
PT STANDING AT THIS SIDE OF THE BED USING THE URINAL. PT ALERT AND ORIENTED. REINFORCED EDUCATION ON RIGHT FOOT BEING NON WEIGHT BARING. PT STATES "I DON'T PUT WEIGHT ON MY FOOT I USE IT TO HELP BALANCE, OR HIKE IT UP IN THE AIR" RESPIRATIONS ARE EVEN AND UNLABORED ON RA. LUNGS SOUND CLEAR. PT REPORTS HAVING SEVERE PAIN IN RIGHT FOOT. PT TO BE MEDICATED PER EMAR ORDERS. DRESSING TO PICC LINE IN UPPER RIGHT ARM APPEARS SOILED, DRESSING CHANGED AT THIS TIME, PT TOLERATED WELL. SAFETY PRECAUTIONS IN PLACE. WILL CONTINUE TO MONITOR.
[2020-09-06 09:34] VITALS: BP 162/69
--- NOTE | 2020-09-06 11:30 | NUR ---
PT RESTING IN BED, REINFORCED THE NEED FOR PT TO ELIVATED FOOT. SAFETY PRECAUTIONS IN PLACE. WILL CONTINUE TO MONTIOR.
[2020-09-06 15:39] VITALS: BP 174/79
--- NOTE | 2020-09-06 15:40 | NUR ---
PT IS MD JASWINDER TO BE NOTIFIED.
[2020-09-06 19:00] VITALS: BP 150/79
--- NOTE | 2020-09-06 19:02 | NUR ---
REPORT FROM YENY BARRIOS. ASSUME PT CARE.
--- NOTE | 2020-09-06 20:54 | NUR ---
PT MEDICATED ORDERED. ASSESSMENT COMPLETE. PT NOTED TO BED STRATCHING SKIN UNDER SOFT CAST/SHABBIR BANDAGE ON RLE. DRESSING LOOSE, DRESSING REINFORCED WITH NEW SHABBIR BANDAGE. EDUCATION PROVIDED. URINAL EMPTIED OF CLEAR YELLOW URINE. DISCUSSED POC AND NWB. PT VERBALIZED UNDERSTANDING. DOUBLE LUMEN PICC TO SADAF, DRESSING CDI, FLUIDS INFUSING AT KVO. PRUNE JUICE PROVIDED UPON REQUEST. PT ELEVATING RLE ON X2 PILLOWS IN BED. NO CURRENT WANT SO NEEDS NOTED. NO APPARENT DISTRESS. CALL LIGHT WITHIN REACH. WILL CONTINUE TO MONITOR.
--- NOTE | 2020-09-07 00:32 | NUR ---
PT RESTING IN BED WITH HOME CPAP MASK ON. NO APPARENT DISTRESS NOTED. PT WAKES EASILY. DENIES ANY PAIN OR DISCOMFORT. RLE ELEVATED ON PILLOWS. IV ABT INITIATED. DOUBLE LUMEN PICC, CDI. PRUNE JUICE PROVIDED UPON REQUEST. CALL LIGHT WITHIN REACH. WILL CONTINUE TO MONITOR.
--- NOTE | 2020-09-07 02:52 | NUR ---
PT MEDICATED FOR PAIN IN RLE WITH PRN LORTAB. NO APPARENT DISTRESS NOTED. RLE ELEVATED ON PILLOWS. DRESSING CDI. NO OTHER CURRENT WANTS OR NEEDS. CALL LIGHT WITHIN REACH. WILL CONTINUE TO MONITOR.
[2020-09-07 04:00] VITALS: BP 151/77
[2020-09-07 07:39] VITALS: BP 179/92
--- NOTE | 2020-09-07 07:39 | NUR ---
REPORT RECEIVED FROM SHELLY WEEMS. PT RESTING IN BED SEMI FOWLERS; ALERT AND ORIENTED. DENIES PAIN CURRENLTY. RESPIRATIONS EVEN AND UNLABORED ON ROOM AIR. SHABBIR WRAP SURGICAL BOOT DRESSING TO RLE CDI AND ELEVATED ON PILLOW; SCD INTACT TO LLE. ABDOMEN SOFT AND DISTENDED; PT REPORTS HAVING BM THIS MORNING. SADAF DL PICC LINE APPEARS HEALTHY WITH IV FLUIDS INFUSING WITHOUT DIFFICULTY; DRESSING CDI DATED 09/06/20. POC REVIEWED. PT ENCOURAGED TO VERBALIZE CONCERNS. SAFETY MEASURES IN PLACE. CALL LIGHT WITHIN REACH.
--- NOTE | 2020-09-07 08:50 | NUR ---
DR. OREILLY AND MELINDA JULIEN AT BEDSIDE.
--- NOTE | 2020-09-07 12:40 | NUR ---
LAB AT BEDSIDE FOR VANCO TROUGH.
--- NOTE | 2020-09-07 13:41 | NUR ---
VANCO THROUGH 13; VANCO INFUSING AT THIS TIME.
[2020-09-07 14:50] VITALS: BP 147/83
--- NOTE | 2020-09-07 15:48 | NUR ---
REPORT GIVEN TO SOPHIE BARKSDALE.
--- NOTE | 2020-09-07 16:00 | NUR ---
REPORT WAS RECEIVED FROM SOPHIE SANON. PATIENT IS RESTING IN BED WITH NO S/S OF DISTRESS NOTED. RIGHT LEG BOOT DRESSING IN PLACE CDI. PAIN DENIES ANY OTHER NEEDS AT THIS TIME. CALL LIGHT IN REACH.
--- NOTE | 2020-09-07 19:07 | NUR ---
REPORT FROM APOLONIA BARRIOS. ASSUMED PT CARE AT THIS TIME.
[2020-09-07 20:00] VITALS: BP 145/85
--- NOTE | 2020-09-07 20:50 | NUR ---
PT MEDICATED ORDERED. ASSESSMENT COMPLETE. DRESSING TO RLE, CDI. DISCUSSED POC AND NWB. PT VERBALIZED UNDERSTANDING. DOUBLE LUMEN PICC TO SADAF, DRESSING CDI, FLUIDS INFUSING AT KVO. PT ELEVATING RLE ON X2 PILLOWS IN BED. NO CURRENT WANT SO NEEDS NOTED. NO APPARENT DISTRESS. CALL LIGHT WITHIN REACH. WILL CONTINUE TO MONITOR.
--- NOTE | 2020-09-08 00:23 | NUR ---
PT RESTING IN BED WITH EYES CLOSED. CPAP MACHINE IN PLACE. RESPIRATIONS EVEN AND UNLABORED. IV ABT INFUSING WITHOUT DIFFICULTY. NO APPARENT DISTRESS NOTED. CALL LIGHT WITHIN REACH. WILL CONTINUE TO MONITOR.
[2020-09-08 04:00] VITALS: BP 134/81
--- NOTE | 2020-09-08 04:22 | NUR ---
LABS OBTAINED FROM SADAF DOUBLE LUMEN PICC AND FLUSHED, PER PROTOCOL. PT TOLERATED WELL.
[2020-09-08 04:50] LABS: HEMATOCRIT 44.2 % (39.0-50.0); MEAN CORPUSCULAR HGB 29.5 pG CALC (26.0-32.0); MEAN CORPUSCULAR HGB CONC 33.5 g/dL CAL (32.0-36.0); RED BLOOD COUNT 5.02 mill/uL (4.70-6.10); RED CELL DISTRI WIDTH 13.7 % (11.5-15.5)
[2020-09-08 05:04] LABS: HEMOGLOBIN 14.8 g/dl (14.0-18.0)
[2020-09-08 05:17] LABS: ALBUMIN 3.9 g/dL (3.2-5.0); ALKALINE PHOSPHATASE 79 u/l (38-126); ANION GAP 12 (6-22 (CALC)); BUN 12 mg/dL (8-23); BUN/CREATININE RATIO 11 (12-20 (CALC)); CARBON DIOXIDE 27 mmol/l (22-30); CHLORIDE 103 mmol/l (95-108); CREATININE 1.1 mg/dL (0.7-1.3); GFR > 60 ML/MIN (>=60 (CALC)); GFR FOR AFR.AMER. > 60 ML/MIN (>=60 (CALC)); POTASSIUM 3.8 mmol/l (3.5-5.1); SGOT/AST 22 u/l (19-48); SODIUM 139 mmol/l (137-146); TOTAL PROTEIN 6.6 g/dL (6.3-8.2)
[2020-09-08 05:19] LABS: BILIRUBIN, TOTAL 1.4 mg/dL (0.0-1.4)
[2020-09-08 07:18] VITALS: BP 117/75
--- NOTE | 2020-09-08 07:18 | NUR ---
PATIENT IN BED ALERT AND ORINETED AT THIS TIME. DENIES ANY NEEDS CURRENTLY. DRESSING TO RIGHT FOOT DRY AND INTACT. CALL LIGHT GERONIMONIN REACH GLORIAAILS UP X 2. PICC LINE INTACT AND IV RUNNING AT K/O RATE AT THIS TIME.
[2020-09-08 09:08] VITALS: BP 117/75
--- NOTE | 2020-09-08 09:50 | NUR ---
DR. TERAN AT [facility] BEDSIDE FOR FOLLOW UP ID CONSULT.
--- NOTE | 2020-09-08 11:30 | NUR ---
PATIENT IN BED AT THIS TIME DENIES ANY NEEDS CURRENTLY. DRESSING DRY AND INTACT. SIDERAILS UP X 2 CALL LIGHT WITHIN REACH.
[2020-09-08] MEDS ORDERED: Levaquin PO (12:17)
[2020-09-08] MEDS ORDERED: BEDSIDE COMMODE (12:26)
--- NOTE | 2020-09-08 14:00 | NUR ---
PICC LINE REMOVED AT THIS TIME UNDER ASEPTIC TECHNIQUES. PICC LINE REMOVED 39.5 CM AND TIP INTACT AND BIO-PATCH PLACED WIHT TEGADERM DRESSING. PATIENT EDUCATED ON IV SITE CLEANING AND VERBALIZES UNDERSTANDING.
[2020-09-08] MEDS ORDERED: HYDROCO/APAP1 TA9 PO (14:11)
[2020-09-08] MEDS ORDERED: WALKER WHEELS/FIXED (14:11)
--- NOTE | 2020-09-08 14:20 | NUR ---
PATIENT D/C AT THIS TIME. D/C INSTRUCTIONS GONE OVER WITH PATIENT. PATIENT VERBALIZES UNDERSTANDING OF ALL D/C INSTRUCTIONS.
--- NOTE | 2020-09-08 14:21 | NUR ---
Discharge instructions given. Patient verbalizes understanding of same. Discharged in stable condition via Wheelchair to [facility] with *Other. All belongings sent with pt. PATIENT TAKEN BY WHEELCHAIR TO WOUND CARE CLINIC AFTER DISCHARGE.
--- NOTE | 2020-09-08 14:31 | NUR ---
S: LILO BURRIS is a 60 M who presents with right, RLE. He has a history of HTN, +ETOH Hyperlipidemia, sleep apnea, anxiety, narcolepsy, neuropathy, osteomyelitis, depression/suicidal. All medications in patient's chart were reviewed. O: VS: BP 117/75 mmHg, P 90 bpm, RR 18 bpm,T 97.6 F W 89.046 kg, HT 180. 34 cm, Scr= 1.1 mg/dL,CrCl= 88.6 ml/min A: Wound culture shows proteus mirabilis which is sensitive to bactrim, ciprofloxicin, ampicillin, ampicillin/sulbactam, cefazolin, ceftazidime, ceftriaxone, gentamicin, zosyn, and cefepime. P: Patient is on zoysn 3.375 g Q6H IV. Vancomycin 1250mg IV q12h. vanco trough was drawn on dose on 09/08/20 @ 12:40. Vancomycin trough is 13. continue current dose of vancomycin. Pharmacy will follow and or advise on antibiotics use as needed.
== END 2020-09-08 14:21 | DRG 464 ==
LOC: ED 11:37 → ED-I 13:10 → ED 13:25 → MS2 13:26
PROVIDERS: Nurse Practitioner; Nurse Practitioner Family; Student in an Organized Health Care Education/Training Program; ADMIT Internal Medicine; ATTEND Internal Medicine
PROC: 0Y6M0Z9 Detachment at Right Foot, Partial 1st Ray, Open Approach (ICD-10-PCS; principal; 2020-09-04)
PROC: 0HXMXZZ Transfer Right Foot Skin, External Approach (ICD-10-PCS; 2020-09-04)
PROC: 0Y6M0ZB Detachment at Right Foot, Partial 2nd Ray, Open Approach (ICD-10-PCS; 2020-09-04)
PROC: 0Y6M0ZC Detachment at Right Foot, Partial 3rd Ray, Open Approach (ICD-10-PCS; 2020-09-04)
PROC: 0Y6M0ZD Detachment at Right Foot, Partial 4th Ray, Open Approach (ICD-10-PCS; 2020-09-04)
PROC: 0Y6M0ZF Detachment at Right Foot, Partial 5th Ray, Open Approach (ICD-10-PCS; 2020-09-04)
PROC: 02HV33Z Insertion of Infusion Device into Superior Vena Cava, Percutaneous Approach (ICD-10-PCS; 2020-09-04)
PROC: B518ZZA Fluoroscopy of Superior Vena Cava, Guidance (ICD-10-PCS; 2020-09-04)
DX: T87.43 Infection of amputation stump, right lower extremity (principal); L03.115 Cellulitis of right lower limb; M86.671 Other chronic osteomyelitis, right ankle and foot; L97.518 Non-pressure chronic ulcer of other part of right foot with other specified severity; L76.32 Postprocedural hematoma of skin and subcutaneous tissue following other procedure; I11.0 Hypertensive heart disease with heart failure; I50.9 Heart failure, unspecified; F10.10 Alcohol abuse, uncomplicated; E11.69 Type 2 diabetes mellitus with other specified complication; E11.621 Type 2 diabetes mellitus with foot ulcer; E11.51 Type 2 diabetes mellitus with diabetic peripheral angiopathy without gangrene; E11.42 Type 2 diabetes mellitus with diabetic polyneuropathy; E78.5 Hyperlipidemia, unspecified; G47.30 Sleep apnea, unspecified; G47.419 Narcolepsy without cataplexy; K59.00 Constipation, unspecified; F41.9 Anxiety disorder, unspecified; F32.9 Major depressive disorder, single episode, unspecified; F14.10 Cocaine abuse, uncomplicated; F17.200 Nicotine dependence, unspecified, uncomplicated; B96.4 Proteus (mirabilis) (morganii) as the cause of diseases classified elsewhere; Y83.5 Amputation of limb(s) as the cause of abnormal reaction of the patient, or of later complication, without mention of misadventure at the time of the procedure; Z95.828 Presence of other vascular implants and grafts; Z91.19 Patient's noncompliance with other medical treatment and regimen; Z20.828 Contact with and (suspected) exposure to other viral communicable diseases
CPT/HCPCS: J0131; J1650; J3370; Q3014

== ENCOUNTER 2020-10-24 18:02 | Emergency (ER) | payer OTHER ==
[~2020-10-24] VITALS: Ht 177.8 cm; Wt 91.0 kg
[~2020-10-24 18:02] MED LIST changes: +BEDSIDE COMMODE; +CLINDAMYCIN HY300 MG PO; +LASIX 40 MG TAB40 MG PO; +Levaquin PO; +POT CHLORIDE10 ME5 PO; +WALKER WHEELS/FIXED
[2020-10-25 03:35] VITALS: BP 143/71
== END 2020-10-24 20:05 | disposition home or self-care (01) | DRG 951 ==
LOC: ED 18:02
DX: Z46.89 Encounter for fitting and adjustment of other specified devices (principal); S91.301D Unspecified open wound, right foot, subsequent encounter; I10 Essential (primary) hypertension; E78.5 Hyperlipidemia, unspecified; D32.9 Benign neoplasm of meninges, unspecified; F17.200 Nicotine dependence, unspecified, uncomplicated; X58.XXXD Exposure to other specified factors, subsequent encounter

== ENCOUNTER 2020-10-26 03:46 | Emergency (ER) | payer OTHER ==
[~2020-10-26] VITALS: Ht 177.8 cm; Wt 87.0 kg
[2020-10-26 05:50] VITALS: BP 178/89
== END 2020-10-26 05:50 | disposition home or self-care (01) | DRG 951 ==
LOC: ED 03:46
DX: Z48.00 Encounter for change or removal of nonsurgical wound dressing (principal); I10 Essential (primary) hypertension; E78.5 Hyperlipidemia, unspecified; F32.9 Major depressive disorder, single episode, unspecified; F17.210 Nicotine dependence, cigarettes, uncomplicated; S81.801D Unspecified open wound, right lower leg, subsequent encounter; X58.XXXD Exposure to other specified factors, subsequent encounter

== ENCOUNTER 2021-04-08 10:31 | Emergency (ER) | payer OTHER ==
[~2021-04-08] VITALS: Ht 177.8 cm; Wt 86.3 kg
[2021-04-08 11:21] LABS: HEMOGLOBIN 14.3 g/dl (14.0-18.0); IMMATURE GRANULOCYTES 0.3 % (0.0-5.0); MEAN CELL VOLUME 88.5 fL CALC (80.0-100.0); MEAN CORPUSCULAR HGB 28.8 pG CALC (26.0-32.0); MEAN CORPUSCULAR HGB CONC 32.5 g/dL CAL (32.0-36.0); NEUT# 5.82 thou/uL (1.82-7.42); RED BLOOD COUNT 4.97 mill/uL (4.70-6.10); RED CELL DISTRI WIDTH 14.7 % (11.5-15.5)
[2021-04-08 11:22] LABS: ALKALINE PHOSPHATASE 103 u/l (38-126); ANION GAP 14 (6-22 (CALC)); BUN 13 mg/dL (8-23); BUN/CREATININE RATIO 14 (12-20 (CALC)); CARBON DIOXIDE 27 mmol/l (22-30); CHLORIDE 101 mmol/l (95-108); ETHYL ALCOHOL 0 mg/dl (0-30); GFR > 60 ML/MIN (>=60 (CALC)); GFR FOR AFR.AMER. > 60 ML/MIN (>=60 (CALC)); POTASSIUM 4.2 mmol/l (3.5-5.1); SGOT/AST 19 u/l (19-48); SODIUM 138 mmol/l (137-146); TOTAL PROTEIN 6.4 g/dL (6.3-8.2)
[2021-04-08 11:33] LABS: BILIRUBIN, TOTAL 0.6 mg/dL (0.0-1.4)
[2021-04-08 11:54] VITALS: BP 128/67
[2021-04-08] MEDS ORDERED: TRAZODONE50 MG PO (18:09)
[2021-04-08] MEDS ORDERED: GABAPENTIN100 MG PO (18:09)
[2021-04-08] MEDS ORDERED: K-TABS10 MEQ PO (18:10)
[2021-04-08] MEDS ORDERED: LASIX 20 MG TAB20 MG PO (18:11)
[2021-04-09] MEDS ORDERED: XANAX XR0.5 MG PO (09:26)
== END 2021-04-08 11:54 | disposition left against medical advice (07) | DRG 313 ==
LOC: ED 10:31
PROVIDERS: Family Medicine
DX: R07.9 Chest pain, unspecified (principal); I10 Essential (primary) hypertension; E78.5 Hyperlipidemia, unspecified; F32.9 Major depressive disorder, single episode, unspecified; G47.419 Narcolepsy without cataplexy; F17.200 Nicotine dependence, unspecified, uncomplicated; Z91.19 Patient's noncompliance with other medical treatment and regimen

== ENCOUNTER 2021-04-08 15:15 | Inpatient (IN) | payer OTHER ==
[~2021-04-08] VITALS: Ht 177.8 cm; Wt 90.0 kg
--- NOTE | 2021-04-08 15:15 | NUR ---
TO ROOM FOR TRIAGE
[2021-04-08 16:10] LABS: HEMATOCRIT 42.2 % (39.0-50.0); HEMOGLOBIN 13.9 g/dl (14.0-18.0); IMMATURE GRANULOCYTES 0.1 % (0.0-5.0); MEAN CELL VOLUME 88.7 fL CALC (80.0-100.0); MEAN CORPUSCULAR HGB 29.2 pG CALC (26.0-32.0); MEAN CORPUSCULAR HGB CONC 32.9 g/dL CAL (32.0-36.0); NEUT# 5.56 thou/uL (1.82-7.42); RED BLOOD COUNT 4.76 mill/uL (4.70-6.10); RED CELL DISTRI WIDTH 14.7 % (11.5-15.5)
--- NOTE | 2021-04-08 16:15 | NUR ---
PATIENT RESTING, VSS, EYES CLOSED.
[2021-04-08 16:28] LABS: ANION GAP 13 (6-22 (CALC)); BUN 12 mg/dL (8-23); BUN/CREATININE RATIO 13 (12-20 (CALC)); CARBON DIOXIDE 26 mmol/l (22-30); CHLORIDE 103 mmol/l (95-108); GFR > 60 ML/MIN (>=60 (CALC)); GFR FOR AFR.AMER. > 60 ML/MIN (>=60 (CALC)); POTASSIUM 4.3 mmol/l (3.5-5.1); SODIUM 137 mmol/l (137-146)
--- NOTE | 2021-04-08 18:00 | NUR ---
DINNER TRAY PROVIDED
[2021-04-08] MEDS ORDERED: GABAPENTIN100 MG PO (18:09)
[2021-04-08] MEDS ORDERED: TRAZODONE50 MG PO (18:09)
[2021-04-08] MEDS ORDERED: K-TABS10 MEQ PO (18:10)
[2021-04-08] MEDS ORDERED: LASIX 20 MG TAB20 MG PO (18:11)
--- NOTE | 2021-04-08 19:00 | NUR ---
PATIENT MEDICATED WITH TYLENOL DUE TO REPRODUCIBLE LEFT CHEST WALL PAIN.
--- NOTE | 2021-04-08 19:19 | NUR ---
REPORT CALLED TO
[2021-04-08 19:48] VITALS: BP 167/83
--- NOTE | 2021-04-08 20:30 | NUR ---
PATIENT ADMITTED FROM ER VIA STRETCHER WITH ER STAFF IN ATTENDANCE. PATIENT ABLE TO TRANSFER FROM STRETCHER TO BED HIMSELF. PATIENT BEING ADMITTED FOR CHEST PAIN-STATES THAT HE CONT TO HAVE LEFT SIDED CHEST PAIN 6/10 ON PAIN SCALE WAS MEDICATED IN ER WITH TYLENOL WITH NO RELIEF. PATIENT IS ALERT AND ORIENTEDX3. SKIN IS WARM AND DRY. COLOR WNL. TELE MONITOR IN PLACE WITH INITIAL READING OF SR-73. PATIENT WITH DRESSING INTACT TO RIGHT FOOT. STATES THAT HE IS SUPPOSED TO HAVE FURTHER SURGERY BY DR. FREIRE ON TUESDAY. 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 SEEING [facility] WEEKLY-LAST VISIT WAS TUESDAY. PATIENT WITH IV SITE TO RAC INTACT AND HEALTHY AT THIS TIME. IVF NS HUNG AND INFUSING AT 50CC/HR ORDERED. PATIENT DENIES ANY DIFFICULTY WITH URINATION. LAST BM WAS 04/06. LUNGS ARE CLEAR. ABD IS SOFT WITH BS+. CALL PLACED TO DR. FREIRE TO ADVISE HIM OF PATIENT ADMISSION-STATES TO LEAVE CURRENT DRESSING IN PLACE AND HE WILL SEE HIM IN THE AM. CURRENT PLAN STILL IS FOR SURGERY ON TUESDAY. PATIENT ADVISED OF PLAN. PROVIDED PATIENT WITH MICROWAVE MEAL. PATIENT ADVISED OF PLAN FOR TELE MONITORING THROUGHOUT THE NIGHT AND SERIAL TROPS WILL BE DRAWN Q6H. SAFETY PRECAUTIONS REINFORCED. CALL LIGHT IN REACH. WILL CONT TO MONITOR.
--- NOTE | 2021-04-08 21:00 | NUR ---
CALL PLACED TO DR. TAWANNA ROJAS PAIN MANAGEMENT. PATIENT STILL C/O LEFT SIDED CHEST PAIN-7/10 ON PAIN SCALE. RECIEVED ORDER FOR ULTRAM 50MG Q8H PRN. WILL MEDICATE WHEN PROFILED ON EMAR. WILL CONT TO MONITOR.
--- NOTE | 2021-04-08 21:53 | NUR ---
PATIENT RESTING IN BED AT THIS TIME-MEDICATED FOR C/O LEFT SIDED CHEST PAIN-7/10 ON PAIN SCALE WITH ULTRAM 50MG PO ORDERED FOR PAIN. CALL LIGHT IN REACH. WILL CONT TO MONITOR.
[2021-04-09] VITALS (7 sets, daily range): BP systolic 142–182; BP diastolic 82–94
--- NOTE | 2021-04-09 00:04 | NUR ---
PATIENT RESTING IN BED AT THIS TIME WITH EYES CLOSED. RESPS ARE EVEN AND UNLABORED. TELE MONITOR IN PLACE. IVF PATENT AND INFUSING VIA RAC SITE AT 50CC/HR. CALL LIGHT IN REACH. WILL CONT TO MONITOR.
--- NOTE | 2021-04-09 03:58 | NUR ---
PATIENT RESTING IN BED AT THIS TIME WITH EYES CLOSED. MN TROP WAS NEG. TELE MONITOR IN PLACE. IVF PATENT AND INFUSING AT 50CC/HR. CALL LIGHT IN REACH. WILL CONT TO MONITOR.
--- NOTE | 2021-04-09 07:00 | NUR ---
RECIEVED REPORT FROM SOPHIE VELAZQUEZ
--- NOTE | 2021-04-09 07:52 | NUR ---
PT RESTING IN SEMI FOWLERS POSITION. PT IS A/O X3. ASSESSMENT AND VITALS COMPLETED. BP 182/91, HR 55, O2 99% ON ROOM AIR. RESPIRATIONS ARE EVEN AND UNLABORD WITH NO DISTRESS NOTED. LUNG SOUNDS ARE CLEAR.HOME CPAP AT BEDSIDE. BOWEL SOUNDS ARE ACTIVE. LEFT PEDAL PULSES WEAK. DRESSING TO RIGHT FOOT CDI. 1+ EDEMA NOTED TO RLE. PT COMPLAINS OF 5/10 PAIN UNDER LEFT BREAST, PT MEDICATED PER EMAR. PT DENIES OF ANY ADDITIONAL NEEDS AT THIS TIME. ALL SAFETY PRECAUTIONS ARE IN PLACE WITH CALL LIGHT IN REACH. INSTRUCTED FOR PT TO CALL FOR ASSISTANCE. WILL CONTINUE TO MONITOR.
--- NOTE | 2021-04-09 08:50 | NUR ---
PT QUESTIONS MEDICATION. PT EDUCATED ON EACH MEDICATION. PT ASKED FOR [employer] TO BE CALLED TO VERIFY MEDICATION. PHARMACY CONSULT ORDERED.
[2021-04-09 09:00] LABS: CHOLESTEROL HDL RATIO 3.5 (<4.4 (CALC)); MAGNESIUM 1.9 mg/dL (1.6-2.3)
[2021-04-09] MEDS ORDERED: XANAX XR0.5 MG PO (09:26)
--- NOTE | 2021-04-09 10:32 | NUR ---
DR OREILLY AT BEDSIDE
--- NOTE | 2021-04-09 11:12 | NUR ---
PT RESTING IN SEMI FOWLERS POSITION WATCHING TV. RESPIRATIONS ARE EVEN AND UNLABORED WITH NO DISRTESS NOTED. TELE MONITORING IN PLACE. PT DENIES OF ANY NEEDS AT THIS TIME. PT STATES PAIN IN NOW 04/04. MD TO BE NOTFIED. IVF INFUSING PER ORDER, SITE REMAINS HEALTHY AND PATENT. ALL SAFETY PRECAUTIOONS ARE IN PLACE WITH CALL LIGHT IN REACH. WILL CONTINUE TO MONITOR.
--- NOTE | 2021-04-09 11:58 | NUR ---
PATIENT SLEEPING SOUNDLY, BEDSIDE TABLE AND CALL LIGHT WITH IN REACH
--- NOTE | 2021-04-09 12:33 | NUR ---
DR OSUNA AT BEDSIDE
--- NOTE | 2021-04-09 13:38 | NUR ---
PT TRANSPORTED [place] VIA [place]ELCHAIR IN STABLE CONDITION.
--- NOTE | 2021-04-09 14:10 | NUR ---
PT ARRIVED BACK TO [facility] ROOM 269 VIA WHEECHAIR IN STABLE CONDITION ACCOMPAINED BY STAFF. IV INFUSIGN WITH IVF PER ORDER. TELE MONITORING IN PLACE. PT DENIES OF ANY NEEDS AT THIS TIME. ALL SAFETY PRECAUTIONS ARE IN PLACE WITH CALL LIGHT IN REACH. WILL CONTINUE TO MONITOR.
--- NOTE | 2021-04-09 15:24 | NUR ---
PT RESTING IN SEMI FOWLERS POSITION. RESPIRATIONS ARE EVEN AND UNLABORED. TELE MONITORING IN PLACE. #20G LAC INFUSING WITH IV F PER ORDER, SITE REMAINS HEALTHY AND PATENT. PT INFORMED OF NPO STATUS AT MIDNIGHT. PT COMPLAINS OF 4/10 LEFT BREAST PAIN. PT MEDICATED PER EMAR. PT DENIES OF ANY ADDITONAL NEEDS AT THIS TIME. ALL SAFETY PRECAUTIONS ARE IN PLACE WITH CALL LIGHT INR EACH./ WILL CONTINUE TO MONITOR.
--- NOTE | 2021-04-09 18:40 | NUR ---
REPORT RECEIVED FROM Leni NIELSEN RN, PATIENT CARE ASSUMED AT THIS TIME.
--- NOTE | 2021-04-09 19:48 | NUR ---
UPON ENTERING ROOM, LARGE PUDLE OF URINE NOTED ON THE FLOOR, WITH FURTHER INSPECTION URINE WAS LEAKING FROM DEFECTIVE URINAL. UNIRAL REPLACED AND URINE CLEANED UP, HOUSEKEEPING WAS CALLED BY Abhinav LAMAR RN. OSIEL COMPLETED THIS TIME, PATIENT IN NO APPARENT DISTRESS, DENIES CHEST PAIN, BUT STATES HE HAS A PAIN UNDER HIS RIB CAGE ONLY PRESENT UPON INSPIRATION. NOT A CONSTANT PAIN, PATIENT IS REQUESTING PAIN MEDICATION ALONG WITH HIS 2100 MEDICATIONS. PATIENT NOTED TO HAVE A RIGHT FOOT TOES AMPUTATION. WOUND BED IS YELLO/RED IN COLOR, NO DRAINAGE NOTED NO APPARET ODOR. NO DRESSING ON FOOT, PATIENT REMOVED AND REFUSES ONE. SLIGHT EDEMA 1+ ON LOWER EXTREMETIES, DENIES ANY LOCAL PAIN. PATIENT HAS A 20 GAUGE LOCATED AT THE RIGHT AC INFUSING NORMAL SALINE AT 10MLS/HR. PATIEN INSTRUCTED TO CALL, CALL LIGHT WITHIN REACH AND BEDSIDE TABLE. CARE PLAN REVIEWED AT THIS TIME.
--- NOTE | 2021-04-09 21:23 | NUR ---
MEDICATIONS ADMINISTERED PER EMAR, SEE EMAR.
--- NOTE | 2021-04-09 21:30 | NUR ---
SPOKE WITH DR. OSUNA REGARDING WITNESSING CONSENT FOR TOMORROWS SX PROCEDURE. PER DR. OSUNA CONSENT IS ALREADY WITH OR TEAM. DR. OSUNA SUSPECTS PT WILL NOT HAVE CARDIAC CLEARANCE FOR SX BY TOMORROW.
[2021-04-10] VITALS (7 sets, daily range): BP systolic 123–178; BP diastolic 79–97
--- NOTE | 2021-04-10 04:30 | NUR ---
CALL TO NURSES STATTION, PATIENT COMPLAINING OF SUDDEN ONSET OF CHEST PAIN. DESCRIBED STABBING TO CENTER OF CHEST, RATES AT A 8/10. PATIENT SB 48 ON TELE, PER Timo JORGEUMA PATIENT "MAY HAVE T-WAVE CHANGES" TELEMETRY ASSESED BY DR. KISER AND YRN RN AND DETERMINED NO ACCUTE CHANGES.
--- NOTE | 2021-04-10 04:35 | NUR ---
MEDICATED FOR PAIN, SEE EMAR.
--- NOTE | 2021-04-10 04:35 | NUR ---
LAB AT BEDSIDE
--- NOTE | 2021-04-10 04:35 | NUR ---
VIOLA AT BEDSIDE DRAWING AM LABS AND TROPONIN LEVEL.
--- NOTE | 2021-04-10 04:41 | NUR ---
THEODORA STEAM SHOVEL RUNNER AT BEDSIDE OBTAINING EKG.
--- NOTE | 2021-04-10 04:41 | NUR ---
RESPIRATORY THERAPY AT BEDSIDE PERFORMING EKG.
[2021-04-10 05:02] LABS: ANION GAP 12 (6-22 (CALC)); BUN 15 mg/dL (8-23); BUN/CREATININE RATIO 14 (12-20 (CALC)); CARBON DIOXIDE 28 mmol/l (22-30); CHLORIDE 102 mmol/l (95-108); CREATININE 1.1 mg/dL (0.7-1.3); GFR > 60 ML/MIN (>=60 (CALC)); GFR FOR AFR.AMER. > 60 ML/MIN (>=60 (CALC)); MAGNESIUM 1.9 mg/dL (1.6-2.3); SODIUM 138 mmol/l (137-146)
[2021-04-10 05:06] LABS: HEMATOCRIT 47.9 % (39.0-50.0); HEMOGLOBIN 15.6 g/dl (14.0-18.0); MEAN CELL VOLUME 88.9 fL CALC (80.0-100.0); MEAN CORPUSCULAR HGB 28.9 pG CALC (26.0-32.0); MEAN CORPUSCULAR HGB CONC 32.6 g/dL CAL (32.0-36.0); RED BLOOD COUNT 5.39 mill/uL (4.70-6.10); RED CELL DISTRI WIDTH 14.6 % (11.5-15.5)
--- NOTE | 2021-04-10 05:35 | NUR ---
EKG ASSESED, NO ACUTE CHANGED COMPARED TO ADMISSION EKG. TROPONIN LEVEL NEGATIVE, PATIENT STATES PAIN IS MUCH BETTER.
--- NOTE | 2021-04-10 05:51 | NUR ---
APRESALINE ADMINISTERED FOR B/P OF 175/97.
--- NOTE | 2021-04-10 06:17 | NUR ---
CHECKED FOLLOW UP B/P, AT 164/80. Rhonda BAINS APRN MADE AWARE OF PATIENTS CHEST PAIN, ASSESMENT, TROPONIN AND EKG RESULTS. NO FURTHER ORDERS AT THIS TIME.
--- NOTE | 2021-04-10 07:00 | NUR ---
RECIEVED REPORT FROM SOPHIE ASENCIO
--- NOTE | 2021-04-10 07:37 | NUR ---
PT SLEEPING IN SEMI FOWLERS POSITION. PT IS A/O X3. ASSESSMENT AND VITALS COMPLETED. BP 178/90, HR 54, O2 97% ON ROOM AIR. RESPIRATIONS ARE EVEN AND UNLABORED WITH NO DISTRESS NOTED. LUNG SOUNDS ARE CLEAR. HEART RYTHM NOTED WITH TELE IN PLACE. BOWEL SOUNDS ARE ACTIVE. RADIAL AND PEDAL PULSES STRONG. #20G LAC INFUSING WITH IVF PER ORDER, SITE REMAINS HEALTHY AND PATENT. SKIN INTACT. PT COMPLAINS OF 8/10 LEFT ELBOW PAIN. PT TO BE MEDICATED PER EMAR. WOUND NOTED TO RIGHT FOOT. OPEN TO AIR. ALL SAFTEY PRECAUTIONS ARE IN PLACE WITH CALL LIGHT IN REACH. WILL CONTINUE TO MONITOR.
--- NOTE | 2021-04-10 11:15 | NUR ---
DR TERAN CONSULT COMPLETED.
--- NOTE | 2021-04-10 12:08 | NUR ---
PT SITTING UP ON SIDE OF BED EATING LUNCH. RESPIRATIONS ARE EVEN AND UNLABORED WITH NO DISTRESS NOTED. #20G LAC INFUSING WITH IVF PER ORDER, SITE REMAINS HEALTHY AND PATENT. TELE MONITORING IN PLACE. PT DENIES OF ANY NEEDS AT THIS TIME. ALL SAFETY PRECAUTIONS ARE IN PLACE WITH CALL LIGHT IN REACH. WILL CONTINUE TO MONITOR.
--- NOTE | 2021-04-10 13:43 | NUR ---
PT ASKED IF HE WILL BE DC TODAY BECAUSE HE " WILL NOT BE STAYING ALL WEEKEND." DR OREILLY NOTIFIED.NO NEW ORDERS OBTAINED.
--- NOTE | 2021-04-10 14:07 | NUR ---
PT COMPLAINS OF ELBOW PAIN. SMALL HARD KNOT NOTED TO LEFT ELBOW. PT STATES HE BELIEVES IT IS THE IV. #20G LAC INFUSING, SITE REMAINS HEALTHY AND PATENT. NO REDNESS OR SWELLING NOTED.
--- NOTE | 2021-04-10 14:54 | NUR ---
ORDERS FOR XRAY OF LEFT ELBOW.
--- NOTE | 2021-04-10 15:09 | NUR ---
PT RESTING IN SEMI FOWLERS POSITION PLAYING GAMES ON PHONE. RESPIRATIONS ARE EVEN AND UNLABORED WITH NO DISTRESS NOTED. #20G LAC INFUSING WITH IVF PER ORDER, SITE REMAINS HEALHTY AND PATENT. PT DENIES OF ANY NEEDS AT THIS TIME. ALL SAFETY PRECAUTIONS ARE IN PLACE WITH CALL LIGHT IN REACH. WILL CONTINUE TO MONITOR .
--- NOTE | 2021-04-10 15:10 | NUR ---
XRAY AT BEDSIDE
--- NOTE | 2021-04-10 19:00 | NUR ---
REPORT RECEIVED FROM GENET CHIN, PATIENT CARE ASSUMED AT THIS TIME
--- NOTE | 2021-04-10 19:30 | NUR ---
PATIENT RESTING COMFORTABLY IN BED. ASSESMENT COMPLETED AT THIS TIME. LUNGS CLEAR BILATERALLY, NORMAL HEART SOUNDS, ACTIVE BOWEL SOUNDS. #20 LOCATED IN THE LEFT ARM INFUSIN NORMAL SALINE AT 20ML/HR. CARE PLAN DISSCUSSED AT THIS TIME, PATIENT UNDERSTANDS HE WILL MOST LIKELY STAY THE WEEKEND, AND THERES A POSSIBILITY OF AN ECHO BEING DONE TODAY. PATIENT INSTRUCTED TO USE CALL LIGHT FOR ASSITANCE. CALL LIGHT AND BEDSIDE TABLE WITHIN REACH.
--- NOTE | 2021-04-10 20:10 | NUR ---
SCHEDULED AND REQUESTED PRN MEDICATIONS ADMINISTERED. SEE E-MAR.
--- NOTE | 2021-04-10 20:15 | NUR ---
ECHO BEING CONDUCTED BY RAKEL AT THIS TIME.
--- NOTE | 2021-04-11 00:45 | NUR ---
PATIENT SLEEPING SOUNDLY AT THIS TIME
[2021-04-11 03:29] VITALS: BP 138/82
--- NOTE | 2021-04-11 04:17 | NUR ---
SECURITY DELIVERS LISINOPRIL BOTTLE DROPPED OFF FOR PT. BOTTLE IS DATED 2015 AND HAS 2 DIFFERENT COLORED PILLS IN IT. MEDICATION COUNTED AND STORED PENDING PHARMACY REVIEW. PHARMACY CONSULT ORDERED. PT IS CONCERNED MED REC MAY BE INCORRECT BUT DOES NOT KNOW CORRECT MEDS.
--- NOTE | 2021-04-11 05:09 | NUR ---
PATIENT RESTING WATCHING TV.
--- NOTE | 2021-04-11 07:00 | NUR ---
RECIEVED REPORT FROM SOPHIE ASENCIO
[2021-04-11] MEDS ORDERED: LOPID600 MG PO (07:12)
[2021-04-11 07:49] VITALS: BP 157/94
--- NOTE | 2021-04-11 07:49 | NUR ---
PT RESTING IN SEMI FOWLERS POSITION. PT IS A/O X3. ASSESSMENT AND VITALS COMPLETED. BP 157/94, HR 70, O2 95% ON ROOM AIR. RESPIRATIONS ARE EVEN AND UNLABORED WITH NO DISTRESS NOTED. LUNG SOUNDS ARE CLEAR. HEART RHYTHM IS NORMAL. BOWEL SOUNDS ARE ACTIVE. PEDAL PULSES WEAK. WOUND NOTED TO RIGHT FOOT. OPEN TO AIR. #20G LAC INFUSING WITH IVF PER ORDER, SITE REMAINS HEALTHY AND PATENT. PT COMPLAINS OF INDIGESTION. NEW ORDERS TO BE OBTAINED. PT DENIES OF ANY ADDITIONAL NEEDS AT THIS TIME. ALL SAFETY PRECAUTIONS ARE IN PLACE WITH CALL LIGHT IN REACH. WILL CONTINUE TO MONITOR.
--- NOTE | 2021-04-11 10:09 | NUR ---
DR NOLAN AT BEDSIDE
--- NOTE | 2021-04-11 11:31 | NUR ---
PT RESTING IN SEMI FOWLERS POSITION. RESDPIRATIONS ARE EVEN AND UNLABORED WITH NO DSIRTESS NOTED. TELE MONITORING IN PLACE. #20G LAC INFUSING WITH IV ANTIBIOTICS, SITE REMAINS HEALTHY AND PATENT. PT DENIES OF ANY NEEDS AT THIS TIME. ALL SAFETY6 PRECAUTIONS ARE IN PLACE. WILL CONTINUE TO MONITOR.
--- NOTE | 2021-04-11 11:35 | NUR ---
PANICCO AT BEDSIDE
[2021-04-11 12:03] VITALS: BP 116/83
--- NOTE | 2021-04-11 12:34 | NUR ---
DRY DRESSING APPLIED TO RIGHT FOOT. PT [id number] WELL. DRESSING REMAINS CDI.
--- NOTE | 2021-04-11 15:17 | NUR ---
PT RESTING IN SEMI FOWLERS POSITION WATCHING TV. RESPIRATIONS ARE EVEN AND UNLABROED WITH NO DISRTESS NOTED. TELE MONITORING IN PLACE. DRESSING TO RLE CDI. PT DENIES OF ANY PAINS OR DISCOMFORTS AT THIS TIME. ALL SAFTEY PRECAUTIONS ARE IN PLACE. WILL CONTINUE TO MONITOR.
[2021-04-11 16:00] VITALS: BP 124/78
[2021-04-11 18:29] VITALS: BP 157/103
--- NOTE | 2021-04-11 20:15 | NUR ---
PATIENT RESTING IN BED AT THIS TIME-AWAKE ALERT AND ORIENTEDX3. BP IS ELEVATED AT 152/103, [id number] WITH APRESOLINE 10MG IVP ORDERED FOR HTN. IVF PATENT AND INFUSING VIA LAC SITE AT KVO RATE. IV SITE IS HEALTHY WITH GOOD BLOOD RETURN. DRESSING TO RIGHT FOOT INTACT. PATIENT VOIDING QS CLEAR YELLOW URINE IN URINAL.TELE MONITOR IN PLACE-LASTR READING SR-82. PATIENT WITH NO COMPLAINTS OF CHEST PAIN, NO SOB AT THIS TIME. SAFETY PRECAUTIONS REINFORCED. CALL LIGHT IN REACH. WILL CONT TO MONITOR.
[2021-04-11 21:00] VITALS: BP 150/87
--- NOTE | 2021-04-11 21:00 | NUR ---
BP-150/87AT THIS TIME. PATIENT WATCHING TV WITH NO COMPLAINTS AT THIS TIME. SAFETY PRECAUTIONS REINFORCED. CALL LIGHT IN REACH, WILL CONT TO MONITOR.
[2021-04-12] VITALS: BP 125/77
--- NOTE | 2021-04-12 | NUR ---
PATIENT RESTING IN BED AT THIS TIME WITH EYES CLOSED. RESPS ARE EVEN AND UNLABORED. IVF PATENT AND INFUSING VIA LAC SITE AT KVO RATE. TELE MONITOR IN PLACE. CALL LIGHT IN REACH. WILL CONT TO MONITOR.
[2021-04-12 04:00] VITALS: BP 124/71
--- NOTE | 2021-04-12 04:08 | NUR ---
PATIENT REMAINS WITH EYES CLOSED. RESPS ARE EVEN AND UNLABORED. TELE MONITOR IN PLACE. IVF PATENT AND INFUSING VIA LAC SITE AT KVO RATE. CALL LIGHT IN REACH, WILL CONT TO MONITOR.
--- NOTE | 2021-04-12 07:00 | NUR ---
RECIEVED REPORT RFOM SOPHIE VELAZQUEZ
[2021-04-12 08:16] VITALS: BP 170/100
--- NOTE | 2021-04-12 08:16 | NUR ---
PT RESTING IN SEMI FOWLERS POSITION. PT IS A/O X3. ASSESSMENT AND VITALS COMPLETED. BP 170/100, HR 89, O2 98% ON ROOM AIR. RESPIRTIONS ARE EVEN AND UNLABORED WITH NO DISTRESS NOTED. LUNG SOUNDS ARE CLEAR. HEARTR HYTHM IS NORMAL WITH TELE IN PLACE. BOWEL SOUNDS ARE ACTIVE IN ALL QUADRANTS. WOUND TO RIGHT FOOT NOTED, DRESSING REMAINS CDI. PT DENIES OF ANY PAINS OR DISCOMFORTS AT THIS TIME. ALL SAFETY PRECAUTIONS ARE IN PLACE WITH CALL LIGHT IN REACH. WILL CONTINUE TO MONITOR.
--- NOTE | 2021-04-12 09:30 | NUR ---
DR NOLAN AT BEDSIDE
[2021-04-12 11:10] VITALS: BP 154/79
--- NOTE | 2021-04-12 12:26 | NUR ---
PT RESTING IN SEMI FOWLERS POSITION. RESPIRATIONS ARE EVEN AND UNLABORED WITH NO DISRTESS NOTED. #20 LAC INFUSING WITH IVF PER ORDER, SITE REMAINS HEALTHY AND PATENT. PT DENIES OF ANY PAINS. ALL SAFETY PRECAUTIONS ARE IN PLACE WITHC ALL LIGHT IN REACH. ALL SAFETY PRECAUTIONS ARE IN PLACE WITH CALL LIGHT INR EACH. WILL CONTINUE TO MONITOR.
--- NOTE | 2021-04-12 14:12 | NUR ---
PT FOUND SMOKING HIS ECIG. CONFISCATED AND LABELED. PLACED IN MEDROOM IN PT ASSIGNED DRAWER. PT INFORMED OF NO SMOKING. PT VERBLAIZED UNDERSTANDING.
[2021-04-12 15:26] VITALS: BP 100/73
--- NOTE | 2021-04-12 15:54 | NUR ---
PT RESTING IN SEMI FOWLERS POSITION. RESPIRATIONS ARE EVEN AND UNLABORED WITH NO DISTRESS NOTED. #20G LAC INFUSING WITH IVF PER ORDER, SITE REMAIN HEALTHY AND PATENT.PT ASK FOR XANAX. IRIZARRY TO BE NOTIFIED. PT DENIES OF ANY PAINS OR DISCOMFORTS AT THIS TIME. ALL SAFETY PRECAUTIONS ARE IN PLACE WITH CALL LIGHT INR EACH. WILL CONTINUE TO MONITOR
--- NOTE | 2021-04-12 16:56 | NUR ---
BAG BROUGHT IN BY FAMILY MEMBER. PUFF BAR INSIDE BACK. BASIN TENDER INFORMED PT THAT HE COULD NOT HAVE IT WHILE IN THE HOSPITAL. NEW PUFF BAR AND PUFF BAR THAT WAS IN MEDROOM SENT HOME WITH FAMILY MEMBER.
--- NOTE | 2021-04-12 20:00 | NUR ---
PATIENT RESTING IN BED AT THIS TIME. AWAKE ALERT AND ORIENTEDX3. TELE MONITOR IN PLACE-LAST REAEDING WAS SR-92. IVF NS PATENT AND INFUSING VIA LAC SITE AT KVO RATE. VOIDING RUKHSANA URINAL IN URINAL AT BEDSIDE. DRESSING TO RIGHT FOOT INTACT. REINFORCED NWB STATUS. SAFETY PRECAUTIONS REINFORCED. CALL LIGHT IN REACH. WILL CONT TO MONITOR.
[2021-04-12 20:26] VITALS: BP 109/75
--- NOTE | 2021-04-12 22:04 | NUR ---
LUIS M BARRIOS CAME TO DRILLER BRAKE LINING AND STATES THAT THE PATIENT TOLD HER THAT HE HAD HIS XANAX IN HIS BEDSIDE TABLE DRAWER. WENT TO PATIENT ROOM AND ASKED PATIENT IF HE HAD XANAX IN HIS TOP DRAWER AND ASKED THE PATIENT TO GET THEM FOR ME. PATIENT WAS COMPLIANT AND DID GIVE THE BOTTLE OF THE PILLS TO ME. EXPLAINED TO THE PATIENT THAT HIS MEDICATIONS COULD EITHER BE SENT HOME WITH SOMEONE FROM HOME OR THAT THEY WOULD BE IN THE PHARMACY AND WOULD BE GIVEN BACK UPON DISCHARGE. ALSO EXPLAINED TO THE PATIENT THE DANGERS OF DISPENSING HIS OWN MEDS ON HIS OWN WHILE BEING MEDICATED BY THE HOSPITAL STAFF AT THE SAME TIME. PATIENT MADE ATTEMPT TO EXPLAIN WHY HE WAS TAKING THESE PILLS ON HIS OWN BUT EXPLAINED TO THE PATIENT THAT THERE WAS NO REASON TO BE DISPENSING HIS OWN MEDS ALONG WITH OURS WHILE IN THE HOSPITAL. MEDICATIONS WERE SECURED AND INVENTORIED-SENT TO THE PHARM. [employer]PERATIONS MANAGER NOTIFIED. WILL CONT TO MONITOR.
[2021-04-13 00:06] VITALS: BP 106/69
--- NOTE | 2021-04-13 01:00 | NUR ---
PATIENT RESTING IN BED AT THIS TIME-TELE MONITOR IN PLACE. IVF PATENT AND INFUSING AT KVO RATE. CALL LIGHT IN REACH. WILL CONT TO MONITOR.
[2021-04-13 04:06] VITALS: BP 104/70
--- NOTE | 2021-04-13 04:24 | NUR ---
PATIENT RESTING IN BED WITH EYES CLOSED. RESPS ARE EVEN AND UNLABORED AT THIS TIME. TELE MONITOR IN PLACE. IVF NS PATENT AND INFUSING VIA LAC SITE AT KVO RATE. CALL LIGHT IN REACH. WILL CONT TO MONITOR.
[2021-04-13 06:06] LABS: HEMATOCRIT 50.6 % (39.0-50.0); HEMOGLOBIN 16.6 g/dl (14.0-18.0); IMMATURE GRANULOCYTES 0.3 % (0.0-5.0); MEAN CELL VOLUME 87.8 fL CALC (80.0-100.0); MEAN CORPUSCULAR HGB 28.8 pG CALC (26.0-32.0); MEAN CORPUSCULAR HGB CONC 32.8 g/dL CAL (32.0-36.0); NEUT# 8.31 thou/uL (1.82-7.42); RED BLOOD COUNT 5.76 mill/uL (4.70-6.10); RED CELL DISTRI WIDTH 14.7 % (11.5-15.5)
[2021-04-13 06:09] LABS: POTASSIUM 4.3 mmol/l (3.5-5.1)
[2021-04-13 06:11] LABS: CREATININE 2.2 mg/dL (0.7-1.3)
--- NOTE | 2021-04-13 06:30 | NUR ---
PATIENT RESTING IN BED WITH OWN C-PAP IN PLACE. DR. NOLAN NOTIFIED OF FINDING THE XANAX AT BEDSIDE LAST NIGHT. NO NEW ORDERS RECEIVED. WILL CONT TO MONITOR.
--- NOTE | 2021-04-13 07:05 | NUR ---
REPORT RECEIVED CHEYENNE VELAZQUEZ RN
[2021-04-13 08:08] VITALS: BP 95/67
--- NOTE | 2021-04-13 08:10 | NUR ---
PT RESTING IN SEMI FOWLERS POSITION,A&O X3;VS OBTAINED AND ASSESSMENT COMPLETED;PT DENIES ANY CURRENT PAIN,PAIN SCALE AND REPORTING EDUCATED;RESPIRATIONS EVEN AND UNLABORED ON RA,CLEAR LUNG SOUNDS;ABDOMEN SOFT ON PALPATION AND ACTIVE IN ALL 4 QUADRANTS;WEAK PEDAL PULSES,TRANSMETATARSAL AMPUTEE TO RIGHT FOOT. DRY DRESSING CDI TO WOUND;#20G TO LAC INFUSING NS @ 10ML/HR,SITE APPEARS HEALTHY AND ABX STARTED AT THIS TIME;TELE MONITORING IN PLACE;PT DENIES ANY ADDITIONAL NEEDS;ENCOURAGED TO CALL FOR ASSISTANCE IF NEEDED;FALL PRECAUTIONS IN PLACE WITH BED IN THE LOWEST POSITION AND CALL LIGHT IN REACH;WILL CONTINUE TO MONITOR
--- NOTE | 2021-04-13 11:32 | NUR ---
PT RESTING IN SEMI FOWLERS POSITION;RESPIRATIONS EVEN AND UNLABORED ON RA;PT DENIES ANY CURRENT NEEDS;TELE MONITORING IN PLACE;IV SITTE PATENT INFUSING NS WITH EASE PER ORDER;ALL SAFETY PRECAUTIONS IN PLACE WITH BED IN THE LOWEST POSITION AND CALL LIGHT IN REACH;WILL CONTINUE TO MONITOR
--- NOTE | 2021-04-13 11:33 | NUR ---
AT BEDSIDE DISCUSSING POC WITH PT.
[2021-04-13 12:00] VITALS: BP 111/66
--- NOTE | 2021-04-13 12:45 | NUR ---
CALL RECEIVED FROM .PER PT NEEDS NUCLEAR STRESS TEST TOMORROW 04/14/21.RADIOLOGY NOTIFIED.
--- NOTE | 2021-04-13 15:05 | NUR ---
PT RESTING IN SEMI FOWLERS POSITION;RESPIRATIONS EVEN AND UNLABORED ON RA;PT DENIES ANY CURRENT PAIN OR DISCOMFORTS;IV SITE PATENT INFUSING NS WITH EASE PER ORDER;TELE MONITORING IN PLACE;DRESSING TO RLE CDI;PT ENCOURAGED TO CALL FOR ASSISTANCE IF NEEDED;CALL LIGHT IN REACH;WILL CONTINUE TO MONITOR
[2021-04-13 18:45] VITALS: BP 119/81
--- NOTE | 2021-04-13 18:45 | NUR ---
REPORT RECEIVED FROM Ricardo FERRARO RN, PATIENT CARE ASSUMED AT THIS TIME.
[2021-04-13 19:00] VITALS: BP 134/84
--- NOTE | 2021-04-13 20:00 | NUR ---
PER ORDERS, PT INFORMED IN ORDER TO HAVE NUCLEAR STRESS TEST IN THE AM, NO CAFFEINE SHOULD BE CONSUMED. PATIENT VERBALISES UNDERSTANDING. PATIENT ALSO INFORMED HE WILL BE NPO 4 HOURS PRIOR TO EXAM.
--- NOTE | 2021-04-13 20:15 | NUR ---
PATIENT WATCHING TV COMFORTABLY IN BED. #20 IN LEFT AC INFUSING NS AT 10ML/HR. ASSESMENT COMPLETED AT THIS TIME. NORMAL HEART SOUNDS, LUNGS SOUNDS CLEAR BILATERALLY. RIGHT FOOT DRESSING INTACT. PATIENT IS COMPLAINING ABOUT NOT RECIVING XANAX WHICH WAS DOUND TO BE IN HIS DRAWER THE DAY BEFORE. PT STATES "I SHOULD HAVE JUST KEPT THE BOTTLE". WRITTER INFORMED PATIENT ON THE DANGERS OF TAKING MEDICATIONS NOT ADMINISTERED TO HIM. PATIENT VEBALIZES UNDERSTANDING BUT CONTINUES TO COMPLAIN. PT STATES HE IS IN PAIN, 6/10 ON HIS R FOOT, AND WOULD LIKE PAIN MEDICATION AT 9PM.
--- NOTE | 2021-04-13 21:20 | NUR ---
MEDICATIONS ADMINISTERED AT THIS TIME, SEE EMAR.
[2021-04-14] VITALS: BP 130/79
--- NOTE | 2021-04-14 00:30 | NUR ---
PATIENT SLEEPING SOUNDLY. BED SIDE TABLE, CALL LIGHT AND URINAL WITHIN REACH.
[2021-04-14 04:00] VITALS: BP 112/69
--- NOTE | 2021-04-14 04:18 | NUR ---
PATIENT SITTING ON THE EDGE OF THE BED, HAS ASKED WRITTER FOR XANAX. PATIENT KNOWS HE CANNOT HAVE XANAX BUT CONTINUES TO ASK.
[2021-04-14 05:15] LABS: HEMATOCRIT 52.1 % (39.0-50.0); HEMOGLOBIN 17.2 g/dl (14.0-18.0); MEAN CELL VOLUME 88.9 fL CALC (80.0-100.0); MEAN CORPUSCULAR HGB 29.4 pG CALC (26.0-32.0); RED BLOOD COUNT 5.86 mill/uL (4.70-6.10); RED CELL DISTRI WIDTH 14.7 % (11.5-15.5)
[2021-04-14 05:44] LABS: ALBUMIN 4.4 g/dL (3.2-5.0); CREATININE 1.8 mg/dL (0.7-1.3); POTASSIUM 4.2 mmol/l (3.5-5.1); TOTAL PROTEIN 7.3 g/dL (6.3-8.2)
[2021-04-14 05:45] LABS: BILIRUBIN, TOTAL 1.4 mg/dL (0.0-1.4)
--- NOTE | 2021-04-14 07:10 | NUR ---
REPORT RECEIVED FROM SOPHIE ASENCIO
--- NOTE | 2021-04-14 09:19 | NUR ---
NM AT BEDSIDE
[2021-04-14 09:25] VITALS: BP 153/89
--- NOTE | 2021-04-14 09:25 | NUR ---
PT RESTING IN SEMI FOWLERS POSITION,A&O X3;VS OBTAINED AND ASSESSMENT COMPLETED;PT DENIES ANY CURRENT PAIN OR DISCOMFORTS,PAIN SCALE AND REPORTING EDUCATED;RESPIRATIONS EVEN AND UNLABORED ON RA,CLEAR LUNG SOUNDS;ABDOMEN SOFT ON PALPATION AND ACTIVE IN ALL 4 QUADRANTS;WEAK PEDAL PULSES,DRESSING NOTED TO RLE;TELE MONITORING IN PLACE;#20G TO RAC INFUSING NS @ 10ML/HR,SITE APPEARS HEALTHY;PT DENIES ANY ADDITIONAL NEEDS AND IS ENCOURAGED TO CALL FOR ASSISTANCE IF NEEDED;FALL PRECAUTIONS IN PLACE WITH BED IN THE LOWEST POSITION AND CALL LIGHT IN REACH;WILL CONTINUE TO MONITOR
--- NOTE | 2021-04-14 09:52 | NUR ---
PT TRANSFERRED TO [place] VIA WHEELCHAIR ACCOMPANIED BY [place] STAFF IN STABLE CONDITION.
--- NOTE | 2021-04-14 10:41 | NUR ---
AT BEDSIDE DISCUSSING POC WITH PT.
--- NOTE | 2021-04-14 11:16 | NUR ---
MARILU SAUCEDO AT 'S OFFICE. NOTIFIED OF STRESS TEST RESULT OF ANGINA PECTORIS.
--- NOTE | 2021-04-14 11:51 | NUR ---
PT RETURNED TO MED/SURG ROOM 269 IN STABLE CONDITION [facility] ACCOMPANIED BY [place] STAFF.
--- NOTE | 2021-04-14 11:55 | NUR ---
PT RESTING IN SEMI FOWLERS POSITION;RESPIRATIONS EVEN AND UNLABORED ON RA;PT DENIES ANY NEEDS;TELE MONITORING PLACED BACK ON PT;IV SITE INFUSING WITH EASE PER ORDER;PT ENCOURAGED TO CALL FOR ASSISTANCE IF NEEDED;FALL PRECAUTIONS REMAIN IN PLACE WITH BED IN THE LOWEST POSITION AND CALL LIGHT IN REACH;WILL CONTINUE TO MONITOR
[2021-04-14 12:41] VITALS: BP 160/96
--- NOTE | 2021-04-14 14:06 | NUR ---
PT MEDICATED WITH PRN XANAX 0.5MG PO AT THIS TIME PER REQUEST,WILL CONTINUE TO MONITOR FOR EFFECTIVENESS
--- NOTE | 2021-04-14 15:30 | NUR ---
PT RESTING IN SEMI FOWLERS POSITION;RESPIRATIONS EVEN AND UNLABORED ON RA;PT DENIES ANY CURRENT PAIN OR DISCOMFORTS;TELE MONITORING IN PLACE;IV SITE PATENT INFUSING NS WITH EASE PER ORDER;PT ENCOURAGED TO CALL FOR ASSISTANCE IF NEEDED;FALL PRECAUTIONS REMAIN IN PLACE WITH BED IN THE LOWEST POSITION AND CALL LIGHT IN REACH;WILL CONTINUE TO MONITOR
[2021-04-14 15:35] VITALS: BP 124/75
--- NOTE | 2021-04-14 15:54 | NUR ---
ANGELINA ADAMS AT BEDSIDE DISCUSSING POC.
--- NOTE | 2021-04-14 16:20 | NUR ---
PT USED TO CALL LIGHT TO NOTIFY NURSE OF BOWEL MOVEMENT. UPON ASSESSMENT LARGE BRIGHT RED BLOODY STOOL NOTED INT TOILET.PT DENIES ANY CURRENT PAIN.PT DOES REPORT HX FOR HEMORRHOIDS.HAT PLACED INTO TOILET FOR STOOL AND ANGELINA ANRP NOTIFIED.NO NEW ORDERS RECEIVED.WILL CONTINUE TO MONITOR
--- NOTE | 2021-04-14 17:00 | NUR ---
PT SPOKE WITH ANGELINA ADAMS AND REQUESTED TO LEAVE AMA.ALL RISKS OF LEAVING AMA DISCUSSED WITH PT BY ANGELINA ADAMS.ALL HOME MEDICATIONS FROM PHARMACY PROVIDED BACK TO PT AT THIS TIME INCLUDING 87 HOME XANAX WHICH WERE COUNTED AND VERIFIED BY PATIENT;RX FOR AUGMENTIN SENT TO [facility] PER ANRP;IV SITE REMOVED WITH CATHETER INTACT AND TELE MONITORING D/C;PT DENIES ANY ADDITIONAL NEEDS;WHEELCHAIR TO BE PROVIDED FOR D/C HOME.
--- NOTE | 2021-04-14 17:20 | NUR ---
Patient decides to leave AMA. Multiple attempts made to ecourage patient to remain here for continued treatment. Explained to patient all risks of leaving against medical advice including . Pt verbalized understanding of all risks. Pt also encouraged to return to [facility] at any time, especially if symptoms continue or become worse. Pt verbalized understanding. PT TRANSPORTED TO [facility] IN STABLE CONDITION VIA WHEELCHAIR ACCOMPANIED BY MECHE VENEGAS. ALL BELONGINGS LEFT WITH PT INCLUDING HOME MEDICATIONS. FAMILY TO TRANSPORT PT HOME.
== END 2021-04-14 15:17 | disposition left against medical advice (07) | DRG 303 ==
LOC: ED 15:15 → ED-I 17:07 → ED 17:07 → ED-I 17:17 → ED 17:35 → MS2 17:36
PROVIDERS: Family Medicine; Nurse Practitioner; Nurse Practitioner Family; ADMIT Internal Medicine; ATTEND Internal Medicine
DX: I25.119 Atherosclerotic heart disease of native coronary artery with unspecified angina pectoris (principal); M86.671 Other chronic osteomyelitis, right ankle and foot; N17.9 Acute kidney failure, unspecified; K92.1 Melena; L03.115 Cellulitis of right lower limb; T87.43 Infection of amputation stump, right lower extremity; T87.81 Dehiscence of amputation stump; I10 Essential (primary) hypertension; I50.9 Heart failure, unspecified; E11.69 Type 2 diabetes mellitus with other specified complication; E11.51 Type 2 diabetes mellitus with diabetic peripheral angiopathy without gangrene; E11.42 Type 2 diabetes mellitus with diabetic polyneuropathy; E78.5 Hyperlipidemia, unspecified; D69.6 Thrombocytopenia, unspecified; I95.9 Hypotension, unspecified; F10.10 Alcohol abuse, uncomplicated; F19.10 Other psychoactive substance abuse, uncomplicated; F32.9 Major depressive disorder, single episode, unspecified; G47.419 Narcolepsy without cataplexy; F41.9 Anxiety disorder, unspecified; G47.30 Sleep apnea, unspecified; F17.200 Nicotine dependence, unspecified, uncomplicated; B96.20 Unspecified Escherichia coli [E. coli] as the cause of diseases classified elsewhere; Y83.5 Amputation of limb(s) as the cause of abnormal reaction of the patient, or of later complication, without mention of misadventure at the time of the procedure; Z95.828 Presence of other vascular implants and grafts; Z89.431 Acquired absence of right foot; Z91.19 Patient's noncompliance with other medical treatment and regimen; Z95.820 Peripheral vascular angioplasty status with implants and grafts; Z53.29 Procedure and treatment not carried out because of patient's decision for other reasons; Z20.822 Contact with and (suspected) exposure to COVID-19
CPT/HCPCS: A9502; J0692; J0706; J1650; J2785; Q3014

== ENCOUNTER 2021-08-04 21:14 | Emergency (ER) | payer MEDICARE ==
[~2021-08-04] VITALS: Ht 177.8 cm; Wt 75.0 kg
[~2021-08-04 21:14] MED LIST changes: +GABAPENTIN100 MG PO; +K-TABS10 MEQ PO; +LASIX 20 MG TAB20 MG PO; +TRAZODONE50 MG PO; +XANAX XR0.5 MG PO
[2021-08-04 22:14] VITALS: BP 165/84
== END 2021-08-04 22:15 | disposition home or self-care (01) ==
LOC: ED 21:14
DX: I10 Essential (primary) hypertension (principal); T46.5X6A Underdosing of other antihypertensive drugs, initial encounter; E78.5 Hyperlipidemia, unspecified; F32.A Depression, unspecified; I73.9 Peripheral vascular disease, unspecified; Z91.128 Patient's intentional underdosing of medication regimen for other reason; Z95.828 Presence of other vascular implants and grafts; Z89.421 Acquired absence of other right toe(s)

== ENCOUNTER 2022-06-01 12:32 | Emergency (ER) | payer MEDICARE ==
[~2022-06-01] VITALS: Ht 177.8 cm; Wt 89.1 kg
[2022-06-01] VITALS (9 sets, daily range): BP systolic 94–135; BP diastolic 58–77
[2022-06-01 14:25] LABS: HEMATOCRIT 46.5 % (39.0-50.0); HEMOGLOBIN 15.2 g/dl (14.0-18.0); IMMATURE GRANULOCYTES 0.4 % (0.0-5.0); MEAN CELL VOLUME 90.6 fL CALC (80.0-100.0); MEAN CORPUSCULAR HGB 29.6 pG CALC (26.0-32.0); MEAN CORPUSCULAR HGB CONC 32.7 g/dL CAL (32.0-36.0); NEUT# 9.54 thou/uL (1.82-7.42); RED BLOOD COUNT 5.13 mill/uL (4.70-6.10); RED CELL DISTRI WIDTH 16.1 % (11.5-15.5)
[2022-06-01 15:04] LABS: ALBUMIN 4.7 g/dL (3.2-5.0); ALKALINE PHOSPHATASE 69 u/l (38-126); ANION GAP 18 (6-22 (CALC)); BUN 16 mg/dL (8-23); BUN/CREATININE RATIO 17 (12-20 (CALC)); CARBON DIOXIDE 27 mmol/l (22-30); CHLORIDE 100 mmol/l (95-108); GFR FOR AFR.AMER. > 60 ML/MIN (>=60 (CALC)); GFR OTHER RACES > 60 ML/MIN (>=60 (CALC)); LIPASE 118 u/l (23-300); POTASSIUM 4.1 mmol/l (3.5-5.1); SGOT/AST 24 u/l (19-48); SODIUM 141 mmol/l (137-146); TOTAL PROTEIN 7.4 g/dL (6.3-8.2)
[2022-06-01 15:07] LABS: BILIRUBIN, TOTAL 1.7 mg/dL (0.0-1.4)
[2022-06-01] MEDS ORDERED: XANAX1 MG PO (16:15)
[2022-06-01] MEDS ORDERED: HYDROCO/APAP1 T10 PO (17:22)
[2022-06-01] MEDS ORDERED: CIPROFLOXACN500 MG PO (17:23)
[2022-06-01] MEDS ORDERED: ZOFRAN4 MG/TAB PO (17:23)
[2022-06-01] MEDS ORDERED: METRONIDAZOLE500 MG PO (17:23)
[2022-06-01 17:51] LABS: URINE BILIRUBIN - DIPSTICK NEGATIVE (NEGATIVE); URINE BLOOD DIPSTICK NEGATIVE (NEGATIVE); URINE COLOR YELLOW; URINE GLUCOSE - DIPSTICK NEGATIVE (NEGATIVE); URINE KETONE NEGATIVE (NEGATIVE); URINE LEUK ESTERASE NEGATIVE (NEGATIVE); URINE PROTEIN - DIPSTICK NEGATIVE (NEG-TRACE); URINE UROBILINOGEN - DIPSTICK 0.2 E.U./dL (0.2)
[2022-06-01 17:57] LABS: URINE NITRITE - DIPSTICK NEGATIVE (Negative)
== END 2022-06-01 17:35 | disposition home or self-care (01) ==
LOC: ED 12:32
PROVIDERS: Family Medicine
DX: K57.32 Diverticulitis of large intestine without perforation or abscess without bleeding (principal)
CPT/HCPCS: Q9967

== ENCOUNTER 2022-06-03 15:06 | Emergency (ER) | payer MEDICARE ==
[~2022-06-03] VITALS: Ht 177.8 cm; Wt 88.9 kg
[~2022-06-03 15:06] MED LIST changes: +HYDROCO/APAP1 T10 PO; +METRONIDAZOLE500 MG PO; +XANAX1 MG PO; +ZOFRAN4 MG/TAB PO
[2022-06-03 15:22] VITALS: BP 138/84
[2022-06-03 15:30] VITALS: BP 124/73
[2022-06-03 15:31] VITALS: BP 124/73
[2022-06-03] MEDS ORDERED: METRONIDAZOLE500 MG PO (17:10)
== END 2022-06-03 15:51 | disposition home or self-care (01) ==
LOC: ED 15:06
DX: Z76.0 Encounter for issue of repeat prescription (principal); K57.32 Diverticulitis of large intestine without perforation or abscess without bleeding; I10 Essential (primary) hypertension; E78.5 Hyperlipidemia, unspecified; F32.A Depression, unspecified; G47.419 Narcolepsy without cataplexy; I73.9 Peripheral vascular disease, unspecified

== ENCOUNTER 2022-11-12 08:36 | Emergency (ER) | payer MEDICARE ==
[~2022-11-12] VITALS: Ht 177.8 cm; Wt 90.7 kg
[2022-11-12 08:48] VITALS: BP 167/111
[2022-11-12 09:03] VITALS: BP 172/93
[2022-11-12 09:18] VITALS: BP 166/95
[2022-11-12 09:33] VITALS: BP 174/92
[2022-11-12] MEDS ORDERED: HYDROCO/APAP1 TA9 PO (10:36)
[2022-11-12 10:37] VITALS: BP 176/100
[2022-11-12 10:39] VITALS: BP 176/97
== END 2022-11-12 10:59 | disposition home or self-care (01) ==
LOC: ED 08:36
DX: M16.11 Unilateral primary osteoarthritis, right hip (principal); I10 Essential (primary) hypertension; E78.5 Hyperlipidemia, unspecified; F32.A Depression, unspecified; I73.9 Peripheral vascular disease, unspecified

== ENCOUNTER 2023-02-12 15:16 | Emergency (ER) | payer MEDICARE ==
[~2023-02-12] VITALS: Ht 177.8 cm; Wt 101.4 kg
[2023-02-12 15:32] VITALS: BP 136/70
[2023-02-12 16:01] VITALS: BP 120/75
[2023-02-12 16:31] VITALS: BP 109/71
[2023-02-12 17:31] VITALS: BP 110/63
[2023-02-12 18:01] VITALS: BP 114/87
[2023-02-12] MEDS ORDERED: HYDROCO/APAP1 TA9 PO (18:02)
[2023-02-12] MEDS ORDERED: NAPROXEN500 MG PO (18:02)
[2023-02-12] MEDS ORDERED: CYCLOBENZAPRINE10 MG PO (18:02)
[2023-02-12 18:09] VITALS: BP 114/87
== END 2023-02-12 18:24 | disposition home or self-care (01) ==
LOC: ED 15:16
DX: M54.2 Cervicalgia (principal); I10 Essential (primary) hypertension; E78.5 Hyperlipidemia, unspecified; F32.A Depression, unspecified; I73.9 Peripheral vascular disease, unspecified; Z95.828 Presence of other vascular implants and grafts; Z89.421 Acquired absence of other right toe(s)

== ENCOUNTER 2023-04-23 13:08 | Emergency (ER) | payer MEDICARE ==
[~2023-04-23] VITALS: Ht 177.8 cm; Wt 94.3 kg
[2023-04-23] VITALS (15 sets, daily range): BP systolic 86–120; BP diastolic 54–69
[~2023-04-23 13:08] MED LIST changes: +CYCLOBENZAPRINE10 MG PO; +NAPROXEN500 MG PO
[2023-04-23 15:23] LABS: BASO% 0.1 % (0-3); EOS% 0.5 % (0-8); IMMATURE GRANULOCYTES 0.3 % (0.0-5.0); LYMPH% 4.1 % (15-41); MEAN CELL VOLUME 88.2 fL CALC (80.0-100.0); MEAN CORPUSCULAR HGB 28.9 pG CALC (26.0-32.0); MEAN CORPUSCULAR HGB CONC 32.8 g/dL CAL (32.0-36.0); MONO% 7.3 % (2-13); NEUT# 12.34 thou/uL (1.82-7.42); NEUT% 87.7 % (42-76); RED BLOOD COUNT 3.63 mill/uL (4.70-6.10); RED CELL DISTRI WIDTH 13.9 % (11.5-15.5)
[2023-04-23 15:26] LABS: HEMOGLOBIN 10.5 g/dl (14.0-18.0)
[2023-04-23 15:37] LABS: BILIRUBIN, TOTAL 1.7 mg/dL (0.2-1.3); CREATININE 1.5 mg/dL (0.7-1.3); POTASSIUM 4.8 mmol/l (3.5-5.1)
[2023-04-23] MEDS ORDERED: NAPROXEN500 MG PO (16:16)
== END 2023-04-23 16:38 | disposition home or self-care (01) ==
LOC: ED 13:08
PROVIDERS: Nurse Practitioner
DX: G89.18 Other acute postprocedural pain (principal); M79.672 Pain in left foot; I10 Essential (primary) hypertension; E78.5 Hyperlipidemia, unspecified; F32.A Depression, unspecified; I73.9 Peripheral vascular disease, unspecified; Z95.828 Presence of other vascular implants and grafts; Z89.422 Acquired absence of other left toe(s); Z89.412 Acquired absence of left great toe; Z91.199 Patient's noncompliance with other medical treatment and regimen due to unspecified reason

== ENCOUNTER 2023-04-27 12:41 | Emergency (ER) | payer MEDICARE ==
[~2023-04-27] VITALS: Ht 177.8 cm; Wt 94.0 kg
[2023-04-27 12:50] VITALS: BP 101/53
[2023-04-27 13:00] VITALS: BP 107/57
[2023-04-27 13:15] VITALS: BP 117/59
[2023-04-27 13:31] VITALS: BP 108/63
[2023-04-27 13:45] VITALS: BP 90/47
[2023-04-27 14:14] VITALS: BP 90/47
== END 2023-04-27 14:10 | disposition left against medical advice (07) ==
LOC: ED 12:41
DX: T87.44 Infection of amputation stump, left lower extremity (principal); I10 Essential (primary) hypertension; E78.5 Hyperlipidemia, unspecified; F32.A Depression, unspecified; S90.822A Blister (nonthermal), left foot, initial encounter; I73.9 Peripheral vascular disease, unspecified; Y83.5 Amputation of limb(s) as the cause of abnormal reaction of the patient, or of later complication, without mention of misadventure at the time of the procedure; X58.XXXA Exposure to other specified factors, initial encounter; Z89.412 Acquired absence of left great toe; Z89.422 Acquired absence of other left toe(s); Z53.29 Procedure and treatment not carried out because of patient's decision for other reasons